=== PATIENT | female | born 1960 | race Caucasian/White ===

== ENCOUNTER 2017-01-07 09:36 | Observation (INO) | payer OTHER ==
[2017-01-07 09:47] VITALS: BMI 26.4
[2017-01-07 10:47] LABS: BASO # 0.02 K/mm3 (0.0-2.0); BASO % 0.7 % (0.0-3.0); GRAN # 1.33 (1.4-6.5); GRAN % 44.3 % (50.0-68.0); HEMATOCRIT 40.5 % (36.0-48.0); LYMPH # 1.3 (1.2-3.4); MEAN CELL VOLUME 91.4 fl (80.0-105.0); MEAN CORPUSCULAR HEMOGLOBIN 30.9 pg (25.0-35.0); MEAN CORPUSCULAR HGB CONC 33.8 g/dl (31.0-37.0); MEAN PLATELET VOLUME 11.3 fl (7.0-11.0); MONO # 0.3 (0.1-0.6); RED CELL DISTRIBUTION WIDTH 13.4 % (11.5-14.5)
[2017-01-07 10:56] LABS: BLOOD UREA NITROGEN 16 mg/dL (7-21); CALCIUM 9.9 mg/dL (8.4-10.5); CARBON DIOXIDE 29 mmol/L (21-33); CHLORIDE 100 mmol/L (98-107); GFR AFRICAN-AMERICAN > 60; GLUCOSE,RANDOM 72 mg/dL (70-110); POTASSIUM 3.6 mmol/L (3.6-5.0); SODIUM 142 mmol/L (132-148)
[2017-01-07 11:08] LABS: TROPONIN I < 0.01 ng/mL
[2017-01-07] MEDS: Sodium Chloride 0.9% 1,000 ML IV SCH ×2 (11:15→19:11)
[2017-01-07 11:22] LABS: ALB/GLOB RATIO 1.8 (1.1-1.8); ALKALINE PHOSPHATASE 32 U/L (38-126); ALT/SGPT 38 U/L (7-56); AST/SGOT 31 U/L (14-36); BILIRUBIN,TOTAL 0.8 mg/dL (0.2-1.3); TOTAL PROTEIN 7.1 g/dL (5.8-8.3)
--- NOTE | 2017-01-07 11:44 | ED PDOC ---
Arrival/HPI - General Chief Complaint: Dizziness/Lightheaded Time Seen by Provider: 01/07/17 09:52 - History of Present Illness Narrative History of Present Illness (Text): Patient is a 56 year old Upper Sorbian speaking female with extensive cardiac past medical history including stents s/p LA, CHF who presents to [facility] ED on 01/07/17 with complaints of dizziness, ear pressure, and headache. Patient states that the dizziness started three weeks ago, but the headache has been going on for six months. Patient was at the [facility] today when she suddenly began to feel dizzy. Patient was brought by EMS to [facility] due to her symptoms. Patient also states that as of late she needs to sleep with three pillows in order to not be short of breath. She states she is compliant with her medications, and has 3 days left before her precriptions run out. Patient denies hearing loss, tinnitus , recent URI, n/v/d, chest pain. 01/07/17 11:23 Past Medical History - Provider Review Nursing Documentation Reviewed: Yes - Infectious Disease Hx of Infectious Diseases: None - Cardiac Hx Cardiac Disorders: Yes (LA, CAD) Hx Congestive Heart Failure: Yes Hx LA: Yes (stents) Hx Pacemaker: Yes Other/Comment: ischemic cardio myopathy - Pulmonary Hx Respiratory Disorders: Yes Hx Pneumonia: Yes Other/Comment: exertional SOB - Neurological Hx Paralysis: No - HEENT Hx HEENT Disorder: No - Renal Hx Renal Disorder: No - Endocrine/Metabolic Hx Endocrine Disorders: Yes Hx Diabetes Mellitus Type 2: Yes - Hematological/Oncological Hx Blood Transfusions: No - Integumentary Hx Dermatological Disorder: No - Musculoskeletal/Rheumatological Hx Falls: No - Gastrointestinal Hx Gastroesophageal Reflux: Yes - Genitourinary/Gynecological Hx Genitourinary Disorders: Yes Hx Incontinence: Yes - Psychiatric Hx Psychophysiologic Disorder: Yes Hx Depression: Yes Hx Emotional Abuse: No Hx Physical Abuse: No Hx Substance Use: No - Surgical History Hx Coronary Stent: Yes - Anesthesia Hx Anesthesia: Yes Hx Anesthesia Reactions: No Hx Malignant Hyperthermia: No - Suicidal Assessment Feels Threatened In Home Enviroment: No Family/Social History - Physician Review Nursing Documentation Reviewed: Yes Family/Social History: CAD/LA Smoking Status: Never Smoked Hx Alcohol Use: No Hx Substance Use: No Hx Substance Use Treatment: No Allergies/Home Meds Allergies/Adverse Reactions: Allergies Penicillins Allergy (Verified 01/07/17 09:47) RASH Home Medications: Home Meds Medication Instructions Recorded Confirmed Atorvastatin Calcium [Lipitor] 80 mg PO DAILY 06/09/14 01/07/17 Carvedilol [Coreg] 6.25 mg PO BID 06/09/14 01/07/17 Clopidogrel [Plavix] 75 mg PO DAILY 06/09/14 01/07/17 Furosemide [Lasix] 20 mg PO DAILY 06/09/14 01/07/17 Spironolactone [Aldactone] 25 mg PO DAILY 06/09/14 01/07/17 Aspirin [Aspirin Chewable] 81 mg PO DAILY 01/07/17 01/07/17 Biotin [Biotin] 1 tab PO DAILY 01/07/17 01/07/17 Calcium Carbonate/Vitamin D3 1 tab PO BID 01/07/17 01/07/17 [Oysco 500-Vit D3 200 Tablet] Clobetasol 0.05% [Temovate 0.05% 1 appful TOP TID 01/07/17 01/07/17 OINTMENT] Digoxin [Digitek] 125 mcg PO DAILY 01/07/17 01/07/17 Docusate [Colace] 100 mg PO BID 01/07/17 01/07/17 Ergocalciferol (Vitamin D2) 1.25 mg PO .WEEKLY 01/07/17 01/07/17 [Vitamin D2] Fenofibrate [Triglide] 160 mg PO DAILY 01/07/17 01/07/17 Folic Acid [Folic Acid] 1,000 mg PO DAILY 01/07/17 01/07/17 Ibuprofen [Motrin Tab] 400 mg PO TID 01/07/17 01/07/17 Lipase/Protease/Amylase [Creon Dr 1 tab PO TID 01/07/17 01/07/17 24,000 Units Capsule] Meloxicam [Meloxicam] 15 mg PO DAILY 01/07/17 01/07/17 MetFORMIN [glucoPHAGE] 500 mg PO BID 01/07/17 01/07/17 Mirtazapine [Remeron] 15 mg PO DAILY 01/07/17 01/07/17 Mv,Min10/Folic Acid/D3/Ala/Lut 1 tab PO DAILY 01/07/17 01/07/17 [Strovite One Caplet] Omeprazole/Sodium Bicarbonate 1 tab PO DAILY 01/07/17 01/07/17 [Omeprazole-Bicarb 40-1,100 Cap] PARoxetine [Paxil] 10 mg PO DAILY 01/07/17 01/07/17 Sacubitril/Valsartan [Entresto 24 1 tab PO BID 01/07/17 01/07/17 mg-26 mg] Review of Systems - Physician Review All systems were reviewed & negative as marked: Yes - Review of Systems Systems not reviewed;Unavailable: Acuity of Condition Constitutional: absent: Fatigue, Fevers Eyes: absent: Vision Changes, Photophobia ENT: Other (increased pressure). absent: Normal, Hearing Changes, Tinnitus Respiratory: SOB. absent: Cough, Wheezing Cardiovascular: Other (pre-syncope). absent: Chest Pain, Palpitations Gastrointestinal: Normal. absent: Abdominal Pain Skin: Normal. absent: Rash, Pruritis Neurological: Headache, Dizziness. absent: Focal Weakness Psychiatric: Normal Physical Exam Vital Signs Reviewed: Yes Vital Signs Temp Pulse Resp BP Pulse Ox 01/07/17 09:37 97.7 F 71 18 101/61 99 Temperature: Afebrile Blood Pressure: Normal Pulse: Regular Respiratory Rate: Normal Appearance: Positive for: Well-Appearing Pain Distress: None Mental Status: Positive for: Alert and Oriented X 3 Finger Stick Blood Glucose: 132 - Systems Exam Head: Present: Atraumatic, Normocephalic Extroacular Muscles: Present: EOMI Ears: Present: Normal, NORMAL TM, Normal Canal. No: Erythema, TM Bulging, Fluid , TM Perf Mouth: Present: Moist Mucous Membranes Respiratory/Chest: Present: Clear to Auscultation, Good Air Exchange Cardiovascular: Present: Regular Rate and Rhythm, Normal S1, S2 Abdomen: Present: Normal Bowel Sounds. No: Tenderness, Distention, Rebound Neurological: Present: CN II-XII Intact, Speech Normal Skin: Present: Warm, Normal Color Psychiatric: Present: Alert, Oriented x 3 Medical Decision Making ED Course and Treatment: Assessment Patient is a 56 year old female who presents with vertigo, ear pressure and headache. Plan - EKG - CT head; no abnormalities - BNP: 466 - Will admit patient to hospitalist team due to extensive cardiac history of patient and presentation of dizziness, for further monitoring and evaluation 01/07/17 15:12 01/07/17 15:20 - Lab Interpretations Lab Results: 01/07/17 10:20 01/07/17 10:20 Lab Results 01/07/17 13:00: NT-Pro-B Natriuret Pep 466 H 01/07/17 10:20: Sodium 142, Potassium 3.6, Chloride 100, Carbon Dioxide 29, Anion Gap 17, BUN 16, Creatinine 0.6, Est GFR ( Amer) > 60, Est GFR (Non- Af Amer) > 60, Random Glucose 72, Calcium 9.9, Total Bilirubin 0.8, AST 31, ALT 38, Alkaline Phosphatase 32 L, Lactate Dehydrogenase 547, Total Creatine Kinase 39, Troponin I < 0.01, Total Protein 7.1, Albumin 4.6, Globulin 2.5, Albumin/ Globulin Ratio 1.8 01/07/17 10:20: WBC 3.0 L D, RBC 4.43, Hgb 13.7, Hct 40.5, MCV 91.4, MCH 30.9, MCHC 33.8, RDW 13.4, Plt Count 154, MPV 11.3 H, Gran % 44.3 L, Lymph % (Auto) 44.0 H, [place]k % (Auto) 10.0 H, Eos % (Auto) 1.0 L, Baso % (Auto) 0.7, Gran # 1.33 L, Lymph # 1.3, Polk # 0.3, Eos # 0.0, Baso # 0.02 I have reviewed the lab results: Yes Interpretation: Abnormal lab values (BNP 466) - RAD Interpretation Radiology Orders: 01/07/17 10:16 CHEST PORTABLE [RAD] Stat 01/07/17 11:22 HEAD W/O CONTRAST [CT] Stat Pick 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 Ulcer: No History Surgical Site Infection Following: None - Disposition Have Diagnosis and Disposition been Completed?: Yes Disposition: HOSPITALIZED Disposition Time: 15:21 Patient Plan: Admission Condition: GUARDED
--- NOTE | 2017-01-07 11:56 | CT ---
PROCEDURE: CT HEAD WITHOUT CONTRAST. HISTORY: headahce and dizziness COMPARISON: None available. TECHNIQUE: Axial computed tomography images were obtained through the head/brain without intravenous contrast. Radiation dose: Total exam DLP = 677.45 mGy-cm. This CT exam was performed using one or more of the following dose reduction techniques: Automated exposure control, adjustment of the mA and/or kV according to patient size, and/or use of iterative reconstruction technique. FINDINGS: HEMORRHAGE: No intracranial hemorrhage. BRAIN: No mass effect or edema. No atrophy or chronic microvascular ischemic changes. VENTRICLES: Unremarkable. No hydrocephalus. CALVARIUM: Unremarkable. PARANASAL SINUSES: Unremarkable as visualized. No significant inflammatory changes. MASTOID AIR CELLS: Unremarkable as visualized. No inflammatory changes. OTHER FINDINGS: None. IMPRESSION: Normal CT of the Head.
--- NOTE | 2017-01-07 12:21 | RAD ---
HISTORY: dizziness COMPARISON: 03/07/2016 FINDINGS: LUNGS: No active pulmonary disease. PLEURA: No significant pleural effusion identified, no pneumothorax apparent. CARDIOVASCULAR: Normal. OSSEOUS STRUCTURES: No significant abnormalities. VISUALIZED UPPER ABDOMEN: Normal. OTHER FINDINGS: Single lead pacemaker IMPRESSION: No active disease.
--- NOTE | 2017-01-07 15:54 | CP.PCM.HP ---
<Matt Fowler - Last Filed: 01/07/17 16:41> History of Present Illness - History of Present Illness History of Present Illness: This is a 56 yr. old female with a past medical history of multiple DC's, s/p stent of LAD AND LCX, Ischemic cardiomyopathy w/ EF 25%, s/p defibrillation, DM , HTN, and cardiac cath (May 2015) who presents with dizziness for approximately three weeks. She reports the dizziness as her head is spinning and hears a buzzing noise in her ears bilaterally that has been in conjunction with the dizziness for approximately 1 week. The patient reports taking meclizine in the morning and evening yesterday but couldn't determine if it helped since she was sleep all yesterday. The patient [facility] when she started to feel dizzy, off balance and that she was going to pass out. She was subsequently brought after one of the care takers at the home called for an ambulance. The patient also reports difficulty sleeping without three pillows. She reports having to sleep like this for multiple months. She reports that if she lays flat she begins to feel shortness of breath and like all of the blood in her body is rushing to her head. ROS: (+) lightheadedness, dizziness, shortness of breath (-) chest pain, changes in vision, urinary or bowel incontinence, nausea, vomiting, fevers, chills, change in appetite, or any other complaints. PMHx: Per HPI PSHx: Cardiac cath (May 2015) SHx:Denies etoh, tobacco, or illicit drug use. Patient lives at home with son and daughter PMD:Dr. Corbin Cardiology: Dr. Dye Present on Admission - Present on Admission Any Indicators Present on Admission: No Review of Systems - Constitutional Constitutional: Headache. absent: Chills, Weight Gain, Weight Loss - EENT Eyes: absent: Discharge, Dry Eye, Loss of Vision Nose/Mouth/Throat: As Per HPI - Cardiovascular Cardiovascular: As Per HPI - Respiratory Respiratory: As Per HPI - Gastrointestinal Gastrointestinal: As Per HPI - Genitourinary Genitourinary: As Per HPI - Musculoskeletal Musculoskeletal: As Per HPI - Neurological Neurological: As Per HPI - Endocrine Endocrine: As Per HPI Past Patient History - Infectious Disease Hx of Infectious Diseases: None - Past Social History Smoking Status: Never Smoked - CARDIAC Hx Cardiac Disorders: Yes (DC, CAD) Hx Congestive Heart Failure: Yes Hx Heart Attack: Yes (stents) Hx Pacemaker: Yes Other/Comment: ischemic cardio myopathy - PULMONARY Hx Respiratory Disorders: Yes Hx Pneumonia: Yes Other/Comment: exertional SOB - NEUROLOGICAL Hx Paralysis: No - HEENT Hx HEENT Problems: No - RENAL Hx Chronic Kidney Disease: No - ENDOCRINE/METABOLIC Hx Endocrine Disorders: Yes Hx Diabetes Mellitus Type 2: Yes - HEMATOLOGICAL/ONCOLOGICAL Hx Blood Transfusions: No - INTEGUMENTARY Hx Dermatological Problems: No - MUSCULOSKELETAL/RHEUMATOLOGICAL Hx Falls: No - GASTROINTESTINAL Hx Gastroesophageal Reflux: Yes - GENITOURINARY/GYNECOLOGICAL Hx Genitourinary Disorders: Yes Hx Incontinence: Yes - PSYCHIATRIC Hx Psychophysiologic Disorder: Yes Hx Depression: Yes Hx Emotional Abuse: No Hx Physical Abuse: No Hx Substance Use: No - SURGICAL HISTORY Hx Coronary Stent: Yes - ANESTHESIA Hx Anesthesia: Yes Hx Anesthesia Reactions: No Hx Malignant Hyperthermia: No Meds Allergies/Adverse Reactions: Allergies Allergy/AdvReac Type Severity Reaction Status Date / Time Penicillins Allergy RASH Verified 01/07/17 09:47 Physical Exam - Constitutional Appears: Younger Than Stated Age - Head Exam Head Exam: ATRAUMATIC, NORMAL INSPECTION, NORMOCEPHALIC - Eye Exam Eye Exam: EOMI, Normal appearance, PERRL Pupil Exam: NORMAL ACCOMODATION, PERRL - ENT Exam ENT Exam: Mucous Membranes Moist - Neck Exam Neck exam: Positive for: Normal Inspection - Respiratory Exam Respiratory Exam: Clear to Auscultation Bilateral, NORMAL BREATHING PATTERN. absent: Rales, Rhonchi - Cardiovascular Exam Cardiovascular Exam: REGULAR RHYTHM, RRR, +S1, +S2. absent: Rubs - GI/Abdominal Exam GI & Abdominal Exam: Normal Bowel Sounds, Soft. absent: Firm, Guarding - Extremities Exam Extremities exam: Positive for: normal inspection. Negative for: tenderness - Back Exam Back exam: NORMAL INSPECTION. absent: paraspinal tenderness - Neurological Exam Neurological exam: Alert, CN II-XII Intact, Normal Gait, Oriented x3 - Psychiatric Exam Psychiatric exam: Normal Affect, Normal Mood - Skin Skin Exam: Dry, Intact, Normal Color Results - Vital Signs Recent Vital Signs: Last Vital Signs Temp 97.7 F 01/07/17 09:37 Pulse 71 01/07/17 09:37 Resp 18 01/07/17 09:37 BP 101/61 01/07/17 09:37 Pulse Ox 99 01/07/17 09:37 - Labs Result Diagrams: 01/07/17 10:20 01/07/17 10:20 - EKG Data EKG Interpreted by: ER Physician Assessment & Plan - Assessment and Plan (Free Text) Assessment: Dizziness vs. pre-syncope vs. TIA -EKG done in E.D. showed some old ST changes in leads V1,V2,V3. It was compared to her last EKG done in the E.D. in March of 2016. No acute findings noted. -Troponins (-) x1 -Patient currently stable: HR 71, BP 95/54, 18RR, and 99 R.A. -Karolyn maneuver done in E.D. with no resolution of symptoms. 1L NS fluids given in E.D. -Head Ct was negative. Carotid Doppler ordered. -Consider MRI if dizziness persists. -Cardio consult pending. Tinnitus vs. Meiner's disease -"buzzing sound" occurring for the last week in conjunction with the dizziness. TM's were grossly benign on physical exam in conjunction with the patient being Afebrile with no signs of leukocytosis. -ENT consult ordered. Hypotensive vs. r/o Orthostatic Hypotension -Patient blood pressure currently 95/54. Patient reports feeling lightheaded upon standing. Continue to monitor VS. -Order orthostatics to be checked tomorrow morning. Polypharmacy -Patient takes over 20 medications daily with alot of them affecting heart function. -F/u with patient tomorrow to determine the how many pills are taken at one time and her compliance level with the pills. -Consider changing medication regimen if dizzy symptom persist. <Anitra Walters - Last Filed: 01/08/17 14:03> Results - Vital Signs Recent Vital Signs: Last Vital Signs Temp 97.8 F 01/08/17 11:53 Pulse 50 L 01/08/17 11:53 Resp 18 01/08/17 11:53 BP 95/49 L 01/08/17 11:53 Pulse Ox 98 01/08/17 06:00 - Labs Result Diagrams: 01/08/17 08:50 01/08/17 08:50 Labs: Laboratory Results - last 24 hr 01/07/17 01/08/17 01/08/17 21:34 07:15 08:50 WBC 2.9 L* RBC 4.04 Hgb 12.5 Hct 37.4 MCV 92.6 MCH 30.9 MCHC 33.4 RDW 13.5 Plt Count 133 MPV 10.5 Gran % 38.0 L Lymph % (Auto) 53.8 H [place]ell % (Auto) 6.5 H Eos % (Auto) 1.4 L Baso % (Auto) 0.3 Gran # 1.11 L Lymph # 1.6 [place]ell # 0.2 Eos # 0.0 Baso # 0.01 Sodium Potassium Chloride Carbon Dioxide Anion Gap BUN Creatinine Est GFR ( Amer) Est GFR (Non-Af Amer) POC Glucose (mg/dL) 88 92 Random Glucose Calcium Total Bilirubin AST ALT Alkaline Phosphatase Total Protein Albumin Globulin Albumin/Globulin Ratio 01/08/17 01/08/17 08:50 11:16 WBC RBC Hgb Hct MCV MCH MCHC RDW Plt Count MPV Gran % Lymph % (Auto) [place] % (Auto) Eos % (Auto) Baso % (Auto) Gran # Lymph # Coryell # Eos # Baso # Sodium 143 Potassium 4.2 Chloride 106 Carbon Dioxide 27 Anion Gap 14 BUN 12 Creatinine 0.6 Est GFR ( Amer) > 60 Est GFR (Non-Af Amer) > 60 POC Glucose (mg/dL) 145 H Random Glucose 81 Calcium 8.9 Total Bilirubin 0.5 AST 36 ALT 37 Alkaline Phosphatase 30 L Total Protein 6.3 Albumin 4.0 Globulin 2.3 Albumin/Globulin Ratio 1.7 Attending/Attestation - Attestation I have personally seen and examined this patient.: Yes I have fully participated in the care of the patient.: Yes I have reviewed all pertinent clinical information: Yes Notes (Text): 01/08/17 13:59 attending note; Patient seen and examined with the resident. Patient is a 56 yr. old female with a past medical history of multiple DC's, s/ p stent of LAD AND LCX, Ischemic cardiomyopathy w/ EF 25%, s/p defibrillator , DM, HTN, and cardiac cath (May 2015) who presents with dizziness. Monitor blood pressure closely. Patient has severe cardiomyopathy. Cardiology evaluation appreciated. Dizziness; possibly related to benign positional vertigo. PT evaluation requested. Neurology evalution requested. Upon discharge the patient will follow-up with PMD . 01/08/17 14:02
[2017-01-07] MEDS: Digoxin 125 mcg (0.125 mg) Tab PO SCH (16:52)
[2017-01-07] MEDS: Cholecalciferol 400 Intl Units Tab PO SCH (18:40)
[2017-01-07] MEDS: SACUBITRIL PO SCH (18:44)
[2017-01-07] MEDS: VALSARTAN PO SCH (18:44)
[2017-01-07] MEDS: Amylase/Lipase/Protease 5,000 U ECC PO SCH (19:00)
[2017-01-07] MEDS: BIOTIN PO SCH (19:44)
[2017-01-07] MEDS ORDERED: Pneumococcal 23-Valent Vaccine IM ONE (20:46)
--- NOTE | 2017-01-07 23:26 | CARD ---
APPROVED REPORT EKG Measurement Heart [id number] <Conclusion> Normal sinus rhythm Anterior infarct, age undetermined Abnormal ECG
[2017-01-08] MEDS: Sodium Chloride 0.9% 1,000 ML IV SCH ×2 (04:32→10:07)
[2017-01-08 07:00] VITALS: O2SAT 98
[2017-01-08 09:04] LABS: BASO # 0.01 K/mm3 (0.0-2.0); BASO % 0.3 % (0.0-3.0); EOS % 1.4 % (1.5-5.0); GRAN # 1.11 (1.4-6.5); HEMATOCRIT 37.4 % (36.0-48.0); LYMPH # 1.6 (1.2-3.4); LYMPH % 53.8 % (22.0-35.0); MEAN CELL VOLUME 92.6 fl (80.0-105.0); MEAN CORPUSCULAR HEMOGLOBIN 30.9 pg (25.0-35.0); MEAN CORPUSCULAR HGB CONC 33.4 g/dl (31.0-37.0); MEAN PLATELET VOLUME 10.5 fl (7.0-11.0); MONO # 0.2 (0.1-0.6); MONO % 6.5 % (1.0-6.0); RED CELL DISTRIBUTION WIDTH 13.5 % (11.5-14.5)
[2017-01-08 09:44] LABS: ALB/GLOB RATIO 1.7 (1.1-1.8); ALKALINE PHOSPHATASE 30 U/L (38-126); ALT/SGPT 37 U/L (7-56); AST/SGOT 36 U/L (14-36); BILIRUBIN,TOTAL 0.5 mg/dL (0.2-1.3); BLOOD UREA NITROGEN 12 mg/dL (7-21); CALCIUM 8.9 mg/dL (8.4-10.5); CARBON DIOXIDE 27 mmol/L (21-33); CHLORIDE 106 mmol/L (98-107); GFR AFRICAN-AMERICAN > 60; GLUCOSE,RANDOM 81 mg/dL (70-110); POTASSIUM 4.2 mmol/L (3.6-5.0); SODIUM 143 mmol/L (132-148); TOTAL PROTEIN 6.3 g/dL (5.8-8.3)
[2017-01-08 09:52] LABS: WHITE BLOOD COUNT 2.9 10^3/ul (4.5-11.0)
[2017-01-08] MEDS ORDERED: Multivitamin With Minerals Tab PO SCH (10:00)
[2017-01-08] MEDS: Cholecalciferol 400 Intl Units Tab PO SCH (10:35)
[2017-01-08] MEDS: Amylase/Lipase/Protease 5,000 U ECC PO SCH ×2 (10:40→15:29)
[2017-01-08] MEDS: VALSARTAN PO SCH (10:42)
[2017-01-08] MEDS: SACUBITRIL PO SCH (10:42)
[2017-01-08] MEDS: BIOTIN PO SCH (10:43)
[2017-01-08 11:53] VITALS: BP 95/49; PULSE 50; RESP 18; TEMP 97.8
--- NOTE | 2017-01-08 14:46 | CP.PCM.DIS ---
<JanethEunice - Last Filed: 01/08/17 14:50> Provider - Provider Date of Admission: 01/07/17 13:36 Attending physician: Soheila Hernandez MD Primary care physician: NO PRIMARY CARE PROVIDER Time Spent in preparation of Discharge (in minutes): 45 Hospital Course - Lab Results Lab Results: Most Recent Lab Values WBC 2.9 10^3/ul (4.5-11.0) L* 01/08/17 08:50 RBC 4.04 10^6/uL (3.5-6.1) 01/08/17 08:50 Hgb 12.5 g/dL (12.0-16.0) 01/08/17 08:50 Hct 37.4 % (36.0-48.0) 01/08/17 08:50 MCV 92.6 fl (80.0-105.0) 01/08/17 08:50 MCH 30.9 pg (25.0-35.0) 01/08/17 08:50 MCHC 33.4 g/dl (31.0-37.0) 01/08/17 08:50 RDW 13.5 % (11.5-14.5) 01/08/17 08:50 Plt Count 133 10^3/uL (120.0-450.0) 01/08/17 08:50 MPV 10.5 fl (7.0-11.0) 01/08/17 08:50 Gran % 38.0 % (50.0-68.0) L 01/08/17 08:50 Lymph % (Auto) 53.8 % (22.0-35.0) H 01/08/17 08:50 [place] % (Auto) 6.5 % (1.0-6.0) H 01/08/17 08:50 Eos % (Auto) 1.4 % (1.5-5.0) L 01/08/17 08:50 Baso % (Auto) 0.3 % (0.0-3.0) 01/08/17 08:50 Gran # 1.11 (1.4-6.5) L 01/08/17 08:50 Lymph # 1.6 (1.2-3.4) 01/08/17 08:50 [place] # 0.2 (0.1-0.6) 01/08/17 08:50 Eos # 0.0 (0.0-0.7) 01/08/17 08:50 Baso # 0.01 K/mm3 (0.0-2.0) 01/08/17 08:50 Sodium 143 mmol/L (132-148) 01/08/17 08:50 Potassium 4.2 mmol/L (3.6-5.0) 01/08/17 08:50 Chloride 106 mmol/L (98-107) 01/08/17 08:50 Carbon Dioxide 27 mmol/L (21-33) 01/08/17 08:50 Anion Gap 14 (10-20) 01/08/17 08:50 BUN 12 mg/dL (7-21) 01/08/17 08:50 Creatinine 0.6 mg/dL (0.5-1.4) 01/08/17 08:50 Est GFR ( Amer) > 60 01/08/17 08:50 Est GFR (Non-Af Amer) > 60 01/08/17 08:50 POC Glucose (mg/dL) 145 mg/dL (65-110) H 01/08/17 11:16 Random Glucose 81 mg/dL (70-110) 01/08/17 08:50 Calcium 8.9 mg/dL (8.4-10.5) 01/08/17 08:50 Total Bilirubin 0.5 mg/dL (0.2-1.3) 01/08/17 08:50 AST 36 U/L (14-36) 01/08/17 08:50 ALT 37 U/L (7-56) 01/08/17 08:50 Alkaline Phosphatase 30 U/L (38-126) L 01/08/17 08:50 Lactate Dehydrogenase 547 U/L (333-699) 01/07/17 10:20 Total Creatine Kinase 39 U/L (35-230) 01/07/17 10:20 Troponin I < 0.01 ng/mL 01/07/17 10:20 NT-Pro-B Natriuret Pep 466 pg/mL (0-450) H 01/07/17 13:00 Total Protein 6.3 g/dL (5.8-8.3) 01/08/17 08:50 Albumin 4.0 g/dL (3.0-4.8) 01/08/17 08:50 Globulin 2.3 gm/dL 01/08/17 08:50 Albumin/Globulin Ratio 1.7 (1.1-1.8) 01/08/17 08:50 - Hospital Course Hospital Course: This is a 56 yr. old female with a past medical history of CAD, multiple VA's, stent placement in the LAD and LCX, ischemic cardiomyopathy with an EF=25%, AICD , DM, HTN and cardiac cath (2016) that presented with dizziness for three weeks that she described as head spinning associated with buzzing noise in bilateral ears for one week. Patient reports taking Meclizine in the morning and afternoon without any relief which caused her to sleep the whole day before coming in today. The next day she was in the [employer] when she started to feel dizzy off balance, as if she was going to pass out. She was subsequently brought in via ambulance. Patient also reports SOB and feeling of "blood rushing to heard" when laying flat. She also reports needing 3 pillows to sleep. On 01/[address] done which was negative and her HLO=587. Cardio and ENT were consulted during her stay. Patient was discharged on 01/08. - Date & Time of H&P Date of H&P: 01/07/17 Time of H&P: 15:14 Discharge Exam - Head Exam Head Exam: ATRAUMATIC, NORMAL INSPECTION, NORMOCEPHALIC - Eye Exam Eye Exam: EOMI, Normal appearance, PERRL Pupil Exam: NORMAL ACCOMODATION, PERRL - Respiratory Exam Respiratory Exam: Clear to PA & Lateral, NORMAL BREATHING PATTERN, UNREMARKABLE. absent: Rales, Rhonchi, Stridor - Cardiovascular Exam Cardiovascular Exam: REGULAR RHYTHM, RRR, +S1, +S2. absent: Gallop, Rubs - GI/Abdominal Exam GI & Abdominal Exam: Normal Bowel Sounds, Unremarkable - Back Exam Back exam: NORMAL INSPECTION. absent: paraspinal tenderness - Neurological Exam Neurological exam: Alert, CN II-XII Intact, Oriented x3 - Psychiatric Exam Psychiatric exam: Normal Affect, Normal Mood - Skin Skin Exam: Dry Discharge Plan - Discharge Medications Prescriptions: Carvedilol [Coreg] 3.125 mg PO BID #60 tab Meclizine [Antivert] 12.5 mg PO TID PRN #6 tab PRN Reason: Dizziness - Follow Up Plan Condition: GUARDED Disposition: HOME/ ROUTINE Instructions: Pacemaker (GEN), Syncope (GEN), Hypotension (GEN), Dizziness (GEN ) Additional Instructions: 1. Follow up with DR. dye in 2 days and adjust dosage. 2. Follow up with PMD DR. Corbin. 3. Decrease coreg from 6.25 to 3.125 bid. 4. Outpatient vestibular therapy. 5. Heart healthy diet Continue home medications as ordered. If condition occurs again go to the nearest emergency room. Referrals: PCP,NO [Primary Care Provider] - <Anitra Waletrs - Last Filed: 01/08/17 17:43> Provider - Provider Date of Admission: 01/07/17 13:36 Attending physician: Soheila Hernandez MD Primary care physician: NO PRIMARY CARE PROVIDER Hospital Course - Lab Results Lab Results: Most Recent Lab Values WBC 2.9 10^3/ul (4.5-11.0) L* 01/08/17 08:50 RBC 4.04 10^6/uL (3.5-6.1) 01/08/17 08:50 Hgb 12.5 g/dL (12.0-16.0) 01/08/17 08:50 Hct 37.4 % (36.0-48.0) 01/08/17 08:50 MCV 92.6 fl (80.0-105.0) 01/08/17 08:50 MCH 30.9 pg (25.0-35.0) 01/08/17 08:50 MCHC 33.4 g/dl (31.0-37.0) 01/08/17 08:50 RDW 13.5 % (11.5-14.5) 01/08/17 08:50 Plt Count 133 10^3/uL (120.0-450.0) 01/08/17 08:50 MPV 10.5 fl (7.0-11.0) 01/08/17 08:50 Gran % 38.0 % (50.0-68.0) L 01/08/17 08:50 Lymph % (Auto) 53.8 % (22.0-35.0) H 01/08/17 08:50 [place] % (Auto) 6.5 % (1.0-6.0) H 01/08/17 08:50 Eos % (Auto) 1.4 % (1.5-5.0) L 01/08/17 08:50 Baso % (Auto) 0.3 % (0.0-3.0) 01/08/17 08:50 Gran # 1.11 (1.4-6.5) L 01/08/17 08:50 Lymph # 1.6 (1.2-3.4) 01/08/17 08:50 [place] # 0.2 (0.1-0.6) 01/08/17 08:50 Eos # 0.0 (0.0-0.7) 01/08/17 08:50 Baso # 0.01 K/mm3 (0.0-2.0) 01/08/17 08:50 Sodium 143 mmol/L (132-148) 01/08/17 08:50 Potassium 4.2 mmol/L (3.6-5.0) 01/08/17 08:50 Chloride 106 mmol/L (98-107) 01/08/17 08:50 Carbon Dioxide 27 mmol/L (21-33) 01/08/17 08:50 Anion Gap 14 (10-20) 01/08/17 08:50 BUN 12 mg/dL (7-21) 01/08/17 08:50 Creatinine 0.6 mg/dL (0.5-1.4) 01/08/17 08:50 Est GFR ( Amer) > 60 01/08/17 08:50 Est GFR (Non-Af Amer) > 60 01/08/17 08:50 POC Glucose (mg/dL) 145 mg/dL (65-110) H 01/08/17 11:16 Random Glucose 81 mg/dL (70-110) 01/08/17 08:50 Calcium 8.9 mg/dL (8.4-10.5) 01/08/17 08:50 Total Bilirubin 0.5 mg/dL (0.2-1.3) 01/08/17 08:50 AST 36 U/L (14-36) 01/08/17 08:50 ALT 37 U/L (7-56) 01/08/17 08:50 Alkaline Phosphatase 30 U/L (38-126) L 01/08/17 08:50 Lactate Dehydrogenase 547 U/L (333-699) 01/07/17 10:20 Total Creatine Kinase 39 U/L (35-230) 01/07/17 10:20 Troponin I < 0.01 ng/mL 01/07/17 10:20 NT-Pro-B Natriuret Pep 466 pg/mL (0-450) H 01/07/17 13:00 Total Protein 6.3 g/dL (5.8-8.3) 01/08/17 08:50 Albumin 4.0 g/dL (3.0-4.8) 01/08/17 08:50 Globulin 2.3 gm/dL 01/08/17 08:50 Albumin/Globulin Ratio 1.7 (1.1-1.8) 01/08/17 08:50 Attending/Attestation - Attestation I have personally seen and examined this patient.: Yes I have fully participated in the care of the patient.: Yes I have reviewed all pertinent clinical information, including history, physical exam and plan: Yes Notes (Text): 01/08/17 17:41 attending note; Patient seen and examined with the resident. Patient is a 56 yr. old female with a past medical history of multiple VA's, s/ p stent of LAD AND LCX, Ischemic cardiomyopathy w/ EF 25%, s/p defibrillator , DM, HTN, and cardiac cath (May 2015) who presents with dizziness. low blood pressure: secondary cardiomyopathy. Medication adjusted by cooker casing Dr. Dye. Coreg dosage decreased to 3.125 twice a day from 6.25 twice a day. Dizziness; possibly related to benign positional vertigo. PT evaluation appreciated. Neurology evaluation appreciated. Continue meclizine when necessary. AICD interrogation done which was normal. Upon discharge the patient will follow-up with PMD . diagnosis; Dizziness Cardiomyopathy AICD placemen Benign positional vertigo/vestibular neuronitis
[2017-01-08] MEDS: Digoxin 125 mcg (0.125 mg) Tab PO SCH (15:29)
[2017-01-08 15:30] VITALS: PULSE 61
--- NOTE | 2017-01-08 16:14 | CP.PCM.CON ---
<GómezRishabh - Last Filed: 01/08/17 16:07> History of Present Illness - History of Present Illness History of Present Illness: Neurology Consult Note for Dr. Murphy service Consulted for: headache, possible BPPV HPI: This is a 56 yo Spanish F with PMH of multiple VA's, CAD s/p stenting of LAD AND LCX, Ischemic cardiomyopathy w/ EF 25%, s/p defibrillator placement, DM , HTN, and recent cardiac cath (May 2015) who presented [place] [facility] dizziness x3 wks, and fullness/buzzing in bilateral ears concurrent with dizziness for the last week. Describes the dizziness as room spinning, general lightheadedness. Also reported to ED and Primary team that she attempted to control with Meclizine, but stopped taking after getting no relief after 2 doses. Patient also reports shortness of breath when lying flat, normally sleeping on 3 pillows. Patient denies chest pain, shortness of breath when upright, vision changes, loss of balance/fall with head trauma, fevers/chills, emesis, diarrhea, or focal weakness. All other ROS in 12-point system review negative PMH: as above PSH: Cardiac cath (May 2015) SHx: Denies tobacco/alcohol/illicits Lives at home with son and daughter FHx: CAD and VA in multiple 1st degree and extended family relatives PMD:Dr. Corbin Cardiology: Dr. Dye Review of Systems - Review of Systems All systems: reviewed and no additional remarkable complaints except (as per HPI ) Past Patient History - Infectious Disease Hx of Infectious Diseases: None - Past Social History Smoking Status: Never Smoked - CARDIAC Hx Cardiac Disorders: Yes (VA, CAD) Hx Congestive Heart Failure: Yes Hx Hypercholesterolemia: Yes Hx Hypertension: Yes - PULMONARY Hx Respiratory Disorders: Yes Hx Pneumonia: Yes Other/Comment: exertional SOB, sleeps on 3 pillows - NEUROLOGICAL Hx Neurological Disorder: No - HEENT Hx HEENT Problems: No - RENAL Hx Chronic Kidney Disease: No - ENDOCRINE/METABOLIC Hx Diabetes Mellitus Type 2: Yes - HEMATOLOGICAL/ONCOLOGICAL Hx Blood Disorders: No - INTEGUMENTARY Hx Dermatological Problems: No - MUSCULOSKELETAL/RHEUMATOLOGICAL Hx Falls: No Hx Unsteady Gait: Yes (cane) - GASTROINTESTINAL Hx Gastroesophageal Reflux: Yes - GENITOURINARY/GYNECOLOGICAL Hx Genitourinary Disorders: Yes Hx Incontinence: Yes - PSYCHIATRIC Hx Psychophysiologic Disorder: Yes Hx Depression: Yes Hx Emotional Abuse: No Hx Physical Abuse: No Hx Substance Use: No - SURGICAL HISTORY Hx Surgeries: Yes Hx Coronary Stent: Yes - ANESTHESIA Hx Anesthesia: Yes Hx Anesthesia Reactions: No Hx Malignant Hyperthermia: No Meds Home Medications: Home Medication List Medication Instructions Recorded Confirmed Type Carvedilol [Coreg] 3.125 mg PO BID #60 tab 01/08/17 Rx Meclizine [Antivert] 12.5 mg PO TID PRN #6 tab 01/08/17 Rx Allergies/Adverse Reactions: Allergies Allergy/AdvReac Type Severity Reaction Status Date / Time Penicillins Allergy RASH Verified 01/07/17 09:47 - Medications Medications: Current Medications Amylase (Pancrease 58455 U-5000 U-17498 U) 5,000 u PO TID [facility] Last Admin: 01/08/17 15:29 Dose: 5,000 u Aspirin (Aspirin Chewable) 81 mg PO DAILY [facility] Last Admin: 01/08/17 10:36 Dose: 81 mg Atorvastatin Calcium (Lipitor) 80 mg PO DAILY [facility] Last Admin: 01/08/17 10:34 Dose: 80 mg Calcium Carbonate (Oscal) 500 mg PO BID [facility] Last Admin: 01/08/17 10:34 Dose: 500 mg Carvedilol (Coreg) 3.125 mg PO BID [facility] Last Admin: 01/08/17 10:42 Dose: Not Given Clopidogrel Bisulfate (Plavix) 75 mg PO DAILY [facility] Last Admin: 01/08/17 10:34 Dose: 75 mg Digoxin (Lanoxin) 0.125 mg PO 1400 [facility] Last Admin: 01/08/17 15:29 Dose: 0.125 mg Docusate Sodium (Colace) 100 mg PO BID [facility] Last Admin: 01/08/17 10:34 Dose: 100 mg Fenofibrate (Tricor) 145 mg PO DAILY [facility] Last Admin: 01/08/17 10:34 Dose: 145 mg Folic Acid (Folic Acid) 1 mg PO DAILY [facility] Last Admin: 01/08/17 10:36 Dose: 1 mg Furosemide (Lasix) 20 mg PO DAILY [facility] Last Admin: 01/08/17 10:34 Dose: 20 mg Metformin HCl (Glucophage) 500 mg PO BID [facility] Last Admin: 01/08/17 10:36 Dose: 500 mg Mirtazapine (Remeron) 15 mg PO DAILY [facility] Last Admin: 01/08/17 10:35 Dose: 15 mg Multivitamins/Minerals (Therapeutic-M Tab) 1 tab PO DAILY [facility] Last Admin: 01/08/17 10:35 Dose: 1 tab Non-Formulary Medication (Biotin [Biotin]) 1 tab PO DAILY [facility] Last Admin: 01/08/17 10:43 Dose: Not Given Non-Formulary Medication (Sacubitril/Valsartan [Entresto 24 Mg-26 Mg]) 1 tab PO BID [facility] Last Admin: 01/08/17 10:42 Dose: Not Given Paroxetine HCl (Paxil) 10 mg PO DAILY [facility] Last Admin: 01/08/17 11:00 Dose: 10 mg Spironolactone (Aldactone) 25 mg PO DAILY [facility] Last Admin: 01/08/17 10:59 Dose: 25 mg Vitamin D (Vitamin D 400 Intl Units Tab) 200 intlu PO BID [facility] Last Admin: 01/08/17 10:35 Dose: 200 intlu Physical Exam - Constitutional Appears: Well, Non-toxic, No Acute Distress, Other (Anxous) - Head Exam Head Exam: ATRAUMATIC, NORMAL INSPECTION, NORMOCEPHALIC - Eye Exam Eye Exam: EOMI, Normal appearance, PERRL. absent: Conjunctival injection, Nystagmus, Scleral icterus Pupil Exam: NORMAL ACCOMODATION, PERRL. absent: Fixed, Irregular, Unequal - ENT Exam ENT Exam: Mucous Membranes Moist. absent: Mucous Membranes Dry - Neck Exam Neck exam: Positive for: Full Rom, Normal Inspection - Respiratory Exam Respiratory Exam: Clear to Auscultation Bilateral, NORMAL BREATHING PATTERN. absent: Accessory Muscle Use, Chest Wall Tenderness, Decreased Breath Sounds, Rales, Rhonchi, Wheezes - Cardiovascular Exam Cardiovascular Exam: REGULAR RHYTHM, RRR, +S1, +S2. absent: Bradycardia, Tachycardia, Clicks, JVD, +S4 - GI/Abdominal Exam GI & Abdominal Exam: Normal Bowel Sounds, Soft. absent: Diminished Bowel Sounds , Distended, Firm, Hyperactive Bowel Sounds, Hypoactive Bowel Sounds, Rigid, Tenderness - Extremities Exam Extremities exam: Negative for: calf tenderness, pedal edema, tenderness - Neurological Exam Neurological exam: Alert, CN II-XII Intact, Oriented x3 Additional comments: awake and alert, following all commands appropriately, moving all extremities spontaneously no ataxia, no intention or resting tremors - Psychiatric Exam Psychiatric exam: Anxious, Normal Affect - Skin Skin Exam: Dry, Intact, Normal Color, Warm Results - Vital Signs Recent Vital Signs: Last Vital Signs Temp 97.8 F 01/08/17 11:53 Pulse 50 L 01/08/17 11:53 Resp 18 01/08/17 11:53 BP 95/49 L 01/08/17 11:53 Pulse Ox 98 01/08/17 06:00 - Labs Result Diagrams: 01/08/17 08:50 01/08/17 08:50 Labs: Laboratory Results - last 24 hr 01/07/17 01/08/17 01/08/17 21:34 07:15 08:50 WBC 2.9 L* RBC 4.04 Hgb 12.5 Hct 37.4 MCV 92.6 MCH 30.9 MCHC 33.4 RDW 13.5 Plt Count 133 MPV 10.5 Gran % 38.0 L Lymph % (Auto) 53.8 H [place] % (Auto) 6.5 H Eos % (Auto) 1.4 L Baso % (Auto) 0.3 Gran # 1.11 L Lymph # 1.6 [place] # 0.2 Eos # 0.0 Baso # 0.01 Sodium Potassium Chloride Carbon Dioxide Anion Gap BUN Creatinine Est GFR ( Amer) Est GFR (Non-Af Amer) POC Glucose (mg/dL) 88 92 Random Glucose Calcium Total Bilirubin AST ALT Alkaline Phosphatase Total Protein Albumin Globulin Albumin/Globulin Ratio 01/08/17 01/08/17 08:50 11:16 WBC RBC Hgb Hct MCV MCH MCHC RDW Plt Count MPV Gran % Lymph % (Auto) [place] % (Auto) Eos % (Auto) Baso % (Auto) Gran # Lymph # [place] # Eos # Baso # Sodium 143 Potassium 4.2 Chloride 106 Carbon Dioxide 27 Anion Gap 14 BUN 12 Creatinine 0.6 Est GFR ( Amer) > 60 Est GFR (Non-Af Amer) > 60 POC Glucose (mg/dL) 145 H Random Glucose 81 Calcium 8.9 Total Bilirubin 0.5 AST 36 ALT 37 Alkaline Phosphatase 30 L Total Protein 6.3 Albumin 4.0 Globulin 2.3 Albumin/Globulin Ratio 1.7 Assessment & Plan - Assessment and Plan (Free Text) Assessment: This is a 56 yo Spanish F with PMH of multiple VA's, CAD s/p stenting of LAD AND LCX, Ischemic cardiomyopathy w/ EF 25%, s/p defibrillator placement, DM, HTN, and recent cardiac cath (May 2015) who presented to [facility] with dizziness x3 wks, and fullness/buzzing in bilateral ears concurrent with dizziness for the last week. Her dizziness is likely 2/2 positional vertigo with possible underlying vestibular neuritis. There is also likely a component of cerebral hypoperfusion to the brain secondary to her hx of ischemic cardiomyopathy with low EF, causing low systolic and diastolic blood pressures. Plan: 1) Meclizine 25mg PO TID for at least one month. Patient instructed to NOT stop taking after only a few doses 2) Fioricet 1 tab PO q4 PRN for headache 3) Reduced dietary sodium 4) Vestibular rehab, PT/OT 5) Would normally recommend lying flat, but not feasible for this patient due to significant SOB when lying flat Patient seen, reviewed, and discussed with attending, Dr. Benjamin Murphy. <Scott Murphy - Last Filed: 01/08/17 16:33> Meds - Medications Medications: Current Medications Acetaminophen/Butalbital/Caffeine (Fioricet) 1 tab PO Q4H PRN PRN Reason: Headache Amylase (Pancrease 47776 U-5000 U-09004 U) 5,000 u PO TID [facility] Last Admin: 01/08/17 15:29 Dose: 5,000 u Aspirin (Aspirin Chewable) 81 mg PO DAILY [facility] Last Admin: 01/08/17 10:36 Dose: 81 mg Atorvastatin Calcium (Lipitor) 80 mg PO DAILY [facility] Last Admin: 01/08/17 10:34 Dose: 80 mg Calcium Carbonate (Oscal) 500 mg PO BID [facility] Last Admin: 01/08/17 10:34 Dose: 500 mg Carvedilol (Coreg) 3.125 mg PO BID [facility] Last Admin: 01/08/17 10:42 Dose: Not Given Clopidogrel Bisulfate (Plavix) 75 mg PO DAILY [facility] Last Admin: 01/08/17 10:34 Dose: 75 mg Digoxin (Lanoxin) 0.125 mg PO 1400 [facility] Last Admin: 01/08/17 15:29 Dose: 0.125 mg Docusate Sodium (Colace) 100 mg PO BID [facility] Last Admin: 01/08/17 10:34 Dose: 100 mg Fenofibrate (Tricor) 145 mg PO DAILY [facility] Last Admin: 01/08/17 10:34 Dose: 145 mg Folic Acid (Folic Acid) 1 mg PO DAILY [facility] Last Admin: 01/08/17 10:36 Dose: 1 mg Furosemide (Lasix) 20 mg PO DAILY [facility] Last Admin: 01/08/17 10:34 Dose: 20 mg Metformin HCl (Glucophage) 500 mg PO BID [facility] Last Admin: 01/08/17 10:36 Dose: 500 mg Mirtazapine (Remeron) 15 mg PO DAILY [facility] Last Admin: 01/08/17 10:35 Dose: 15 mg Multivitamins/Minerals (Therapeutic-M Tab) 1 tab PO DAILY [facility] Last Admin: 01/08/17 10:35 Dose: 1 tab Non-Formulary Medication (Biotin [Biotin]) 1 tab PO DAILY [facility] Last Admin: 01/08/17 10:43 Dose: Not Given Non-Formulary Medication (Sacubitril/Valsartan [Entresto 24 Mg-26 Mg]) 1 tab PO BID [facility] Last Admin: 01/08/17 10:42 Dose: Not Given Paroxetine HCl (Paxil) 10 mg PO DAILY [facility] Last Admin: 01/08/17 11:00 Dose: 10 mg Spironolactone (Aldactone) 25 mg PO DAILY [facility] Last Admin: 01/08/17 10:59 Dose: 25 mg Vitamin D (Vitamin D 400 Intl Units Tab) 200 intlu PO BID [facility] Last Admin: 01/08/17 10:35 Dose: 200 intlu Results - Vital Signs Recent Vital Signs: Last Vital Signs Temp 97.8 F 01/08/17 11:53 Pulse 50 L 01/08/17 11:53 Resp 18 01/08/17 11:53 BP 95/49 L 01/08/17 11:53 Pulse Ox 98 01/08/17 06:00 - Labs Result Diagrams: 01/08/17 08:50 01/08/17 08:50 Labs: Laboratory Results - last 24 hr 01/07/17 01/08/17 01/08/17 21:34 07:15 08:50 WBC 2.9 L* RBC 4.04 Hgb 12.5 Hct 37.4 MCV 92.6 MCH 30.9 MCHC 33.4 RDW 13.5 Plt Count 133 MPV 10.5 Gran % 38.0 L Lymph % (Auto) 53.8 H [place] % (Auto) 6.5 H Eos % (Auto) 1.4 L Baso % (Auto) 0.3 Gran # 1.11 L Lymph # 1.6 [place] # 0.2 Eos # 0.0 Baso # 0.01 Sodium Potassium Chloride Carbon Dioxide Anion Gap BUN Creatinine Est GFR ( Amer) Est GFR (Non-Af Amer) POC Glucose (mg/dL) 88 92 Random Glucose Calcium Total Bilirubin AST ALT Alkaline Phosphatase Total Protein Albumin Globulin Albumin/Globulin Ratio 01/08/17 01/08/17 08:50 11:16 WBC RBC Hgb Hct MCV MCH MCHC RDW Plt Count MPV Gran % Lymph % (Auto) [place] % (Auto) Eos % (Auto) Baso % (Auto) Gran # Lymph # [place] # Eos # Baso # Sodium 143 Potassium 4.2 Chloride 106 Carbon Dioxide 27 Anion Gap 14 BUN 12 Creatinine 0.6 Est GFR ( Amer) > 60 Est GFR (Non-Af Amer) > 60 POC Glucose (mg/dL) 145 H Random Glucose 81 Calcium 8.9 Total Bilirubin 0.5 AST 36 ALT 37 Alkaline Phosphatase 30 L Total Protein 6.3 Albumin 4.0 Globulin 2.3 Albumin/Globulin Ratio 1.7 Attending/Attestation - Attestation I have personally seen and examined this patient.: Yes I have fully participated in the care of the patient.: Yes I have reviewed all pertinent clinical information: Yes
[2017-01-08] MEDS ORDERED: Apap-Butalbital-Caffeine 325-50-40mg Tab PO PRN (16:20)
--- NOTE | 2017-01-08 19:34 | CON ---
DATE OF SERVICE: 01/08/2017 SERVICE: Cardiology. ATTENDING PROVIDER: Aleta Dye MD. REASON FOR CONSULTATION: Followup cardiac evaluation, admitted with dizziness, possibly secondary to orthostatic hypotension, history of coronary artery disease, cardiomyopathy, status post AICD. BRIEF CLINICAL HISTORY: This is a 56-year-old female with a past medical history significant for coronary artery disease, status post cardiogenic shock, status post non-STEMI on 02/12/2014 in [place], status post PTCA of the circumflex, status post AICD on 02/22/2011 in [place], Biotronik defibrillator, decreased LV function, ejection fraction ranging from 20% to 25%, who was admitted after feeling dizzy, found to have orthostatic hypotension, given IV fluid. Now, the dizziness is completely improved and denies any chest pain, shortness of breath, or palpitation. PAST MEDICAL HISTORY: Significant for coronary artery disease, status post cardiogenic shock, hypertension, diabetes, hyperlipidemia, non-STEMI on 02/12/2014 in [place], the patient underwent PTCA in [place], status post cardiogenic shock, status post AICD on 02/22/2011 with Biotronik pacemaker. PREVIOUS CARDIAC WORKUP: As follows: The patient underwent cardiac catheterization dated 05/08/2015 because of abnormal stress test that shows a patent stent in mid LAD and mid circumflex, normal right coronary artery, small-caliber vessel, ejection fraction 25%, EDP was in the range of 10 to 12, severe apical hypokinesis noted, status post AICD. Medical treatment recommended including digoxin, diuretic, PALLAVI inhibitor, Coreg, spironolactone as blood pressure is tolerated. Suggested to continue aspirin and Plavix. Prior to that, the patient had a stress test on 04/06/2015 prior to cardiac catheterization and that shows abnormal myocardial study, fixed defect, ejection fraction 19%. SOCIAL HISTORY: Denies any history of alcohol abuse. CURRENT MEDICATIONS: The patient is taking spironolactone, Entresto one tablet, Paxil, omeprazole, metformin, meloxicam, ibuprofen, fenofibrate. ALLERGIES: TO PENICILLIN. REVIEW OF SYSTEMS: As per HPI. DIAGNOSTIC STUDIES: EKG shows normal sinus, poor RR progression, no acute ST-T changes noted, but the telemetry shows noncapturing spike of QRS complex. PHYSICAL EXAMINATION: VITAL SIGNS: Temperature afebrile, heart rate 61, blood pressure 94/58. Yesterday, blood pressure was 86/52. HEENT: PERRLA. Extraocular muscles intact. NECK: Supple. No carotid bruits or thyromegaly. CHEST: Clear to auscultation. HEART: S1 and S2 regular. ABDOMEN: Soft. EXTREMITIES: Clubbing and cyanosis negative. LABORATORY DATA: Blood workup as follows: WBC 3, hemoglobin 13.7, hematocrit 40.5, platelet count 154. Chemistry shows sodium 140, potassium 3.6, chloride 100, carbon dioxide 29, anion gap of 17, BUN 16, creatinine 0.6, troponin is 0.01. IMPRESSION: A 56-year-old female with a past medical history significant for cardiogenic shock, status post PTCA of LAD, status post PTCA of circumflex in [place] on 03/14/2014 after having cardiogenic non-ST elevation myocardial infarction, is status post automatic implantable cardioverter-defibrillator on 02/22/2014, Biotronik dual-chamber automatic implantable cardioverter-defibrillator, cardiomyopathy, ejection fraction 25%, admitted with dizziness, syncope secondary to possible hypotension. Telemetry strip shows noncapturing in the pacemaker. RECOMMENDATIONS: We will hold antihypertensive medications with holding parameters, hold for systolic less than 110. Agree to give some gentle diuretics. Continue digoxin. Continue Coreg. We will cut down the Coreg dose to 3.125. Continue atorvastatin. Continue aspirin. Continue Plavix. We will get pacemaker evaluation. We will get an echo to assess LV function. After the echo, the patient will be okay to discharge if remained stable, possibly discharge home today. We will discuss with Dr. Walters. Thank you Dr. Walters for providing us the opportunity in taking care of the patient. Aleta Dye MD
--- NOTE | 2017-01-09 05:16 | CON ---
DATE: 01/08/2017 ADDENDUM REASON FOR ADDENDUM: The patient underwent pacemaker because of . Telemetry shows non-functioning pacemaker and it was reported by tech as malfunction. Automatic implantable cardioverter-defibrillator interrogation was done, made up of [employer] normal functioning, battery life is 80% though it has caused thoracic impedance. Telemetry strip shows pacemaker spikes after the QRS complex, but is normal functioning and his V-paced rhythm from the interrogation of automatic implantable cardioverter-defibrillator. So in summary, it is a normal functioning automatic implantable cardioverter-defibrillator. No issues. Battery life is 78 years. Aleta Dye MD
== END 2017-01-08 17:37 | disposition home or self-care (01) ==
LOC: ED 09:36 → ERH 13:36 → 2RNO 17:14
PROVIDERS: ADMIT Internal Medicine; ATTEND Internal Medicine
DX: H81.10 Benign paroxysmal vertigo, unspecified ear (principal); I25.5 Ischemic cardiomyopathy; I25.10 Atherosclerotic heart disease of native coronary artery without angina pectoris; I11.0 Hypertensive heart disease with heart failure; I50.9 Heart failure, unspecified; E11.9 Type 2 diabetes mellitus without complications; I25.2 Old myocardial infarction; Z79.84 Long term (current) use of oral hypoglycemic drugs; Z88.0 Allergy status to penicillin; Z95.5 Presence of coronary angioplasty implant and graft; Z95.810 Presence of automatic (implantable) cardiac defibrillator
CPT/HCPCS: 36415; 70450; 71010; 80053; 82550; 82948; 83615; 83880; 84484; 85025; 93005; 97116; 97162; 99285; G0378; G8978; G8979; G8980; J7040

== ENCOUNTER 2017-06-30 18:00 | Emergency (ER) | payer OTHER ==
[2017-06-30 18:01] VITALS: PULSE 61
--- NOTE | 2017-06-30 19:02 | ED PDOC ---
Arrival/HPI - General Chief Complaint: Cough, Cold, Congestion Time Seen by Provider: 06/30/17 19:02 Historian: Patient - History of Present Illness Narrative History of Present Illness (Text): 06/30/17 19:02 This is a 56 yo Yi F with PMH of multiple IL's, CAD s/p stenting of LAD AND LCX, Ischemic cardiomyopathy w/ EF 25%, s/p defibrillator placement, DM, HTN, and recent cardiac cath (May 2015) who presented to [facility] [place] with cought x 6 weeks. Patient also admits mild SOB. Time/Duration: Other (noncontributory) Context: Home Past Medical History - Provider Review Nursing Documentation Reviewed: Yes - Infectious Disease Hx of Infectious Diseases: None - Cardiac Hx Congestive Heart Failure: Yes Hx IL: Yes (stents) Hx Pacemaker: Yes (02/2016) Other/Comment: ischemic cardio myopathy. L pacemaker - Pulmonary Other/Comment: exertional SOB, sleeps on 3 pillows - Neurological Hx Neurological Disorder: No - HEENT Hx HEENT Disorder: No - Renal Hx Renal Disorder: No - Endocrine/Metabolic Hx Diabetes Mellitus Type 2: Yes - Hematological/Oncological Hx Blood Disorders: No - Integumentary Hx Dermatological Disorder: No - Musculoskeletal/Rheumatological Hx Unsteady Gait: Yes (cane) - Gastrointestinal Hx Gastroesophageal Reflux: Yes - Genitourinary/Gynecological Hx Genitourinary Disorders: Yes Hx Incontinence: Yes - Psychiatric Hx Psychophysiologic Disorder: Yes Hx Depression: Yes Hx Substance Use: No - Surgical History Hx Coronary Stent: Yes - Anesthesia Hx Anesthesia: Yes - Suicidal Assessment Feels Threatened In Home Enviroment: No Family/Social History - Physician Review Nursing Documentation Reviewed: Yes Family/Social History: Other (noncontributory) Smoking Status: Never Smoked Hx Alcohol Use: No Hx Substance Use: No Hx Substance Use Treatment: No Allergies/Home Meds Allergies/Adverse Reactions: Allergies Penicillins Allergy (Verified 01/07/17 09:47) RASH Home Medications: Home Meds Medication Instructions Recorded Confirmed Atorvastatin Calcium [Lipitor] 80 mg PO DAILY 06/09/14 06/30/17 Clopidogrel [Plavix] 75 mg PO DAILY 06/09/14 06/30/17 Spironolactone [Aldactone] 25 mg PO DAILY 06/09/14 06/30/17 Aspirin [Aspirin Chewable] 81 mg PO DAILY 01/07/17 06/30/17 Biotin [Biotin] 1 tab PO DAILY 01/07/17 06/30/17 Clobetasol 0.05% [Temovate 0.05% 1 appful TOP TID 01/07/17 06/30/17 OINTMENT] Digoxin [Digitek] 125 mcg PO DAILY 01/07/17 06/30/17 Docusate [Colace] 100 mg PO BID 01/07/17 06/30/17 Ergocalciferol (Vitamin D2) 50,000 units PO Q7D 01/07/17 06/30/17 [Vitamin D2] Fenofibrate [Triglide] 160 mg PO DAILY 01/07/17 06/30/17 Folic Acid [Folic Acid] 1,000 mg PO DAILY 01/07/17 06/30/17 Ibuprofen [Motrin Tab] 400 mg PO TID 01/07/17 06/30/17 Lipase/Protease/Amylase [Creon Dr 1 tab PO TID 01/07/17 06/30/17 24,000 Units Capsule] Meloxicam [Meloxicam] 15 mg PO DAILY 01/07/17 06/30/17 MetFORMIN [glucoPHAGE] 500 mg PO BID 01/07/17 06/30/17 Mirtazapine [Remeron] 15 mg PO DAILY 01/07/17 06/30/17 Mv,Min10/Folic Acid/D3/Ala/Lut 1 tab PO DAILY 01/07/17 06/30/17 [Strovite One Caplet] Omeprazole/Sodium Bicarbonate 1 tab PO DAILY 01/07/17 06/30/17 [Omeprazole-Bicarb 40-1,100 Cap] PARoxetine [Paxil] 10 mg PO DAILY 01/07/17 06/30/17 Sacubitril/Valsartan [Entresto 24 1 tab PO BID 01/07/17 06/30/17 mg-26 mg] Calcium Carbonate [Calcium] 600 mg PO DAILY 06/30/17 06/30/17 Carvedilol [Coreg] 6.25 mg PO BID 06/30/17 06/30/17 Furosemide [Lasix] 1 tab PO DAILY 06/30/17 06/30/17 Meclizine [Antivert] 25 mg PO TID PRN 06/30/17 06/30/17 Review of Systems - Review of Systems Constitutional: Normal. absent: Fatigue, Weight Change Eyes: Normal ENT: Sore Throat. absent: Rhinorrhea, Epistaxis Respiratory: SOB, Cough. absent: Sputum, Wheezing Cardiovascular: Normal. absent: Chest Pain, Palpitations Gastrointestinal: Normal. absent: Abdominal Pain, Nausea, Vomiting Genitourinary Female: Normal Musculoskeletal: Normal Skin: Normal Neurological: Normal Endocrine: Normal Hemo/Lymphatic: Normal Psychiatric: Normal Physical Exam Vital Signs Temp Pulse Resp BP Pulse Ox 06/30/17 21:09 124/69 06/30/17 18:40 98.7 F 77 18 106/69 97 Temperature: Afebrile Blood Pressure: Normal Pulse: Regular Respiratory Rate: Normal Appearance: Positive for: Well-Appearing, Non-Toxic, Comfortable Pain Distress: None Mental Status: Positive for: Alert and Oriented X 3 - Systems Exam Head: Present: Atraumatic, Normocephalic Pupils: Present: PERRL Extroacular Muscles: Present: EOMI Conjunctiva: Present: Normal Mouth: Present: Moist Mucous Membranes Neck: Present: Normal Range of Motion Respiratory/Chest: Present: Clear to Auscultation, Good Air Exchange. No: Respiratory Distress, Accessory Muscle Use Cardiovascular: Present: Regular Rate and Rhythm, Normal S1, S2. No: Murmurs Abdomen: Present: Normal Bowel Sounds. No: Tenderness, Distention, Peritoneal Signs Back: Present: Normal Inspection Upper Extremity: Present: Normal Inspection. No: Cyanosis, Edema Lower Extremity: Present: Normal Inspection. No: Edema Neurological: Present: GCS=15, CN II-XII Intact, Speech Normal Skin: Present: Warm, Dry, Normal Color. No: Rashes Psychiatric: Present: Alert, Oriented x 3, Normal Insight, Normal Concentration Medical Decision Making ED Course and Treatment: 06/30/17 22:27 Patient is refusing to be hospitalized for SOB, and mild elevated BNP. Patient and her wanto leave hospital AMA. They both understand risk including IL, severe infection, chronic suffering, worsening of sob, 06/30/17 22:28 Leaving Against Medical Advice (AMA): This patient is choosing to leave against medical advice. The EP has personally explained to the pt that choosing to do so may result in permanent bodily harm or . The EP discussed at great length that without further evaluation and monitoring there may be unforeseen circumstances and/or deterioration causing permanent bodily harm or as a result of their choice. The pt verbalized these risks back to the physician in laymans terms. The pt is alert, oriented, and shows the mental capacity to make clear decisions regarding the pts health care at this time. The pt continues to wish to leave against medical advice. In light of the pts decision to leave AMA, follow-up has been recommended and the pt is aware of the importance of following up as instructed. The pt has been advised that they should return to the ED immediately if they change their mind at any time, or if thier condition begins to change or worsen in any way. Re-evaluation Time: 22:29 Reassessment Condition: Re-examined, Improved - Lab Interpretations Lab Results: 06/30/17 19:35 06/30/17 19:35 Lab Results 06/30/17 19:35: Sodium 143, Chloride 104, Potassium 4.3, Carbon Dioxide 28, Anion Gap 16, BUN 17, Creatinine 0.5 L, Est GFR ( Amer) > 60, Est GFR ( Non-Af Amer) > 60, Random Glucose 96, Calcium 9.6, Total Bilirubin 0.3, AST 33, ALT 52, Alkaline Phosphatase 29 L, Lactate Dehydrogenase 587, Total Creatine Kinase 49, Troponin I < 0.01, NT-Pro-B Natriuret Pep 539 H, Total Protein 6.9, Albumin 4.4, Globulin 2.6, Albumin/Globulin Ratio 1.7 06/30/17 19:35: pO2 38, VBG pH 7.35, VBG pCO2 54.0, VBG HCO3 29.8 H, VBG Total CO2 31.5 H, VBG O2 Sat (Calc) 75.0 H, VBG Base Excess 2.9 H, VBG Potassium 4.1, Sodium 139.0, Chloride 105.0, Glucose 97, Lactate 1.2, FiO2 21.0, Venous Blood Potassium 4.1 06/30/17 19:35: WBC 3.0 L, RBC 4.16, Hgb 12.8, Hct 38.6, MCV 92.8, MCH 30.8, MCHC 33.2, RDW 13.5, Plt Count 138, MPV 11.4 H, Gran % 28.6 L, Lymph % (Auto) 61.8 H, [place] % (Auto) 7.6 H, Eos % (Auto) 1.7, Baso % (Auto) 0.3, Gran # 0.86 L , Lymph # (Auto) 1.9, [place] # (Auto) 0.2, Eos # (Auto) 0.1, Baso # (Auto) 0.01 I have reviewed the lab results: Yes Interpretation: No sign. chg./baseline - RAD Interpretation Narrative RAD Interpretations (Text): 06/30/17 22:29 Chest x-rays: NAD Radiology Orders: 06/30/17 19:15 CHEST PORTABLE [RAD] Stat - EKG Interpretation Interpreted by ED Physician: Yes (NSR @ [address] changes) Type: 12 lead EKG Comparison: Similar to previous EKG - Medication Orders Current Medication Orders: Discontinued Medications Famotidine (Pepcid 20mg/50ml Premix) 20 mg in 50 mls @ 100 mls/hr IVPB STAT STA Stop: 06/30/17 19:46 Last Admin: 06/30/17 19:47 Dose: 100 mls/hr eMAR Start Stop Document 06/30/17 19:47 IT (Rec: 06/30/17 19:47 IT [id number]) Intravenous Solution Start Date 06/30/17 Start Time 19:47 End Date 06/30/17 Disposition/Present on Arrival - Present on Arrival Any Indicators Present on Arrival: No History of DVT/PE: No History of Uncontrolled Diabetes: No Urinary Catheter: No History of Decub. Ulcer: No History Surgical Site Infection Following: None - Disposition Have Diagnosis and Disposition been Completed?: Yes Diagnosis: Shortness of breath, Cough Disposition: AGAINST MEDICAL ADVICE Disposition Time: 22:30 Condition: UNKNOWN Additional Instructions: You need to see Dr. Corbin tomorrow for revaluation. Return to emergency immediately if symptoms worsen. Prescriptions: Famotidine [Pepcid] 40 mg PO DAILY #10 tablet Promethazine [Phenergan Syrup] 6.25 mg PO Q6H PRN #120 ml PRN Reason: Cough And Congestion Referrals: Donis Corbin MD [Primary Care Provider] - Follow up with primary Forms: [employer] ([place])
[2017-06-30] MEDS ORDERED: Famotidine 20mg/50ml 20 MG/50 ML BAG IVPB STA (19:17)
[2017-06-30 19:43] LABS: BASO # 0.01 K/mm3 (0.0-2.0); BASO % 0.3 % (0.0-3.0); EOS # 0.1 (0.0-0.7); EOS % 1.7 % (1.5-5.0); GRAN # 0.86 (1.4-6.5); GRAN % 28.6 % (50.0-68.0); HEMOGLOBIN 12.8 g/dL (12.0-16.0); LYMPH # 1.9 (1.2-3.4); LYMPH % 61.8 % (22.0-35.0); MEAN CELL VOLUME 92.8 fl (80.0-105.0); MEAN CORPUSCULAR HEMOGLOBIN 30.8 pg (25.0-35.0); MEAN CORPUSCULAR HGB CONC 33.2 g/dl (31.0-37.0); MEAN PLATELET VOLUME 11.4 fl (7.0-11.0); MONO # 0.2 (0.1-0.6); MONO % 7.6 % (1.0-6.0); RBC 4.16 10^6/uL (3.5-6.1); RED CELL DISTRIBUTION WIDTH 13.5 % (11.5-14.5)
[2017-06-30 19:46] LABS: VENOUS BLOOD GAS BASE EXCESS 2.9 mmol/L (0.0-2.0); VENOUS BLOOD GAS PO2 38 mm/Hg (30-55); VENOUS BLOOD PH 7.35 (7.32-7.43)
[2017-06-30 19:55] LABS: ALB/GLOB RATIO 1.7 (1.1-1.8); ALBUMIN 4.4 g/dL (3.0-4.8); ALT/SGPT 52 U/L (7-56); AST/SGOT 33 U/L (14-36); BLOOD UREA NITROGEN 17 mg/dL (7-21); CALCIUM 9.6 mg/dL (8.4-10.5); GFR AFRICAN-AMERICAN > 60; GFR NON-AFRICAN AMERICAN > 60
[2017-06-30 20:07] LABS: B-TYPE NATRIURETIC PEPTIDE 539 pg/mL (0-450); TROPONIN I < 0.01 ng/mL
[2017-06-30] MEDS ORDERED: Promethazine/Cod 6.25mg-10mg/5ml Syr UD PO STA (22:37)
[2017-06-30 22:46] VITALS: BP 135/85; PULSE 72; RESP 17; TEMP 98; O2SAT 98
--- NOTE | 2017-07-01 08:09 | RAD ---
HISTORY: sob COMPARISON: 01/07/2017 FINDINGS: LUNGS: No active pulmonary disease. PLEURA: No significant pleural effusion identified, no pneumothorax apparent. CARDIOVASCULAR: Mild cardiomegaly. Single lead pacemaker OSSEOUS STRUCTURES: No significant abnormalities. VISUALIZED UPPER ABDOMEN: Normal. OTHER FINDINGS: None. IMPRESSION: No active disease.
--- NOTE | 2017-07-01 12:34 | CARD ---
APPROVED REPORT EKG Measurement Heart [id number] <Conclusion> Normal sinus rhythm Anteroseptal infarct, age undetermined Abnormal ECG
== END 2017-06-30 22:46 | disposition left against medical advice (07) ==
LOC: ED 18:00
DX: R06.02 Shortness of breath (principal); R05 Cough; I25.10 Atherosclerotic heart disease of native coronary artery without angina pectoris; I25.2 Old myocardial infarction; I10 Essential (primary) hypertension; E11.9 Type 2 diabetes mellitus without complications; Z95.810 Presence of automatic (implantable) cardiac defibrillator

== ENCOUNTER 2017-09-24 15:06 | Emergency (ER) | payer MEDICAID ==
[2017-09-24 15:06] VITALS: PULSE 61
[2017-09-24 15:34] VITALS: TEMP 98; O2SAT 100
--- NOTE | 2017-09-24 16:00 | ED PDOC ---
Arrival/HPI - General Chief Complaint: Weakness/Neurological Deficit Time Seen by Provider: 09/24/17 15:57 Historian: Patient - History of Present Illness Narrative History of Present Illness (Text): 09/24/17 16:00 A 57 year old female, whose past medical history includes diabetes, CHF and pancreatitis, non compliant with medications, presents to the emergency department complaining of severe generalized weakness and fatigue. Patient reports she feels like her heart will stop and she will , reports feeling like this for 3-4 days. Reports to feeling overwhelmed today, symptoms didn't improve after eating. Denies feeling sick recently. Patient denies any chest pain, difficulty breathing or any other complaints at this time. Electric Meter Tester: Dr. Dye PMD: Dr. Corbin Time/Duration: < week Symptom Onset: Sudden Symptom Course: Unchanged Activities at Onset: Rest Context: Home Past Medical History - Provider Review Nursing Documentation Reviewed: Yes - Infectious Disease Hx of Infectious Diseases: None - Cardiac Other/Comment: ischemic cardio myopathy. L pacemaker - Pulmonary Other/Comment: exertional SOB, sleeps on 3 pillows - Neurological Hx Neurological Disorder: No - HEENT Hx HEENT Disorder: No - Renal Hx Renal Disorder: No - Endocrine/Metabolic Hx Diabetes Mellitus Type 2: Yes - Hematological/Oncological Hx Blood Disorders: No - Integumentary Hx Dermatological Disorder: No - Musculoskeletal/Rheumatological Hx Unsteady Gait: Yes (cane) - Gastrointestinal Hx Gastroesophageal Reflux: Yes - Genitourinary/Gynecological Hx Genitourinary Disorders: Yes Hx Incontinence: Yes - Psychiatric Hx Psychophysiologic Disorder: Yes Hx Depression: Yes Hx Substance Use: No - Surgical History Hx Coronary Stent: Yes - Anesthesia Hx Anesthesia: Yes - Suicidal Assessment Feels Threatened In Home Enviroment: No Family/Social History - Physician Review Nursing Documentation Reviewed: Yes Family/Social History: No Known Family HX Smoking Status: Never Smoked Hx Alcohol Use: No Hx Substance Use: No Hx Substance Use Treatment: No Allergies/Home Meds Allergies/Adverse Reactions: Allergies Penicillins Allergy (Verified 09/24/17 15:29) RASH Home Medications: Home Meds Medication Instructions Recorded Confirmed Atorvastatin Calcium [Lipitor] 80 mg PO DAILY 06/09/14 09/24/17 Clopidogrel [Plavix] 75 mg PO DAILY 06/09/14 09/24/17 Spironolactone [Aldactone] 25 mg PO DAILY 06/09/14 09/24/17 Aspirin [Aspirin Chewable] 81 mg PO DAILY 01/07/17 09/24/17 Digoxin [Digitek] 125 mcg PO DAILY 01/07/17 09/24/17 Docusate [Colace] 100 mg PO BID 01/07/17 09/24/17 Ergocalciferol (Vitamin D2) 50,000 units PO Q7D 01/07/17 09/24/17 [Vitamin D2] Fenofibrate [Triglide] 160 mg PO DAILY 01/07/17 09/24/17 Folic Acid [Folic Acid] 1,000 mg PO DAILY 01/07/17 09/24/17 MetFORMIN [glucoPHAGE] 500 mg PO BID 01/07/17 09/24/17 Mirtazapine [Remeron] 15 mg PO DAILY 01/07/17 09/24/17 Mv,Min10/Folic Acid/D3/Ala/Lut 1 tab PO DAILY 01/07/17 09/24/17 [Strovite One Caplet] Omeprazole/Sodium Bicarbonate 1 tab PO DAILY 01/07/17 09/24/17 [Omeprazole-Bicarb 40-1,100 Cap] Sacubitril/Valsartan [Entresto 24 1 tab PO BID 01/07/17 09/24/17 mg-26 mg] Furosemide [Lasix] 1 tab PO DAILY 06/30/17 09/24/17 Meclizine [Antivert] 25 mg PO TID PRN 06/30/17 09/24/17 Alendronate Sodium [Binosto] 70 mg PO DAILY 09/24/17 09/24/17 Ketoconazole 2% Shampoo [Nizoral] 0 applic TOP ONCE 09/24/17 09/24/17 Lactulose [Constulose] 0 gm PO DAILY 09/24/17 09/24/17 Lipase/Protease/Amylase [Creon 1 ecc PO DAILY 09/24/17 09/24/17 [id number]] Pantoprazole [Protonix] 40 mg PO DAILY 09/24/17 09/24/17 Vitamin B Complex [Vitamin B50 1 cap PO DAILY 09/24/17 09/24/17 Super Complex] Review of Systems - Physician Review All systems were reviewed & negative as marked: Yes - Review of Systems Constitutional: Fatigue, Other (generalized weakness) Respiratory: absent: SOB Cardiovascular: absent: Chest Pain Physical Exam Vital Signs Reviewed: Yes Vital Signs Temp Pulse Resp BP Pulse Ox 09/24/17 18:27 63 18 100 09/24/17 17:41 67 20 92/53 L 100 09/24/17 16:38 68 18 100 09/24/17 15:29 98.0 F 71 18 121/65 100 Temperature: Afebrile Blood Pressure: Normal Pulse: Regular Respiratory Rate: Normal Appearance: Positive for: Well-Appearing, Non-Toxic, Comfortable Pain Distress: None Mental Status: Positive for: Alert and Oriented X 3 - Systems Exam Head: Present: Atraumatic, Normocephalic Pupils: Present: PERRL Extroacular Muscles: Present: EOMI Conjunctiva: Present: Normal Mouth: Present: Moist Mucous Membranes Neck: Present: Normal Range of Motion Respiratory/Chest: Present: Clear to Auscultation, Good Air Exchange. No: Respiratory Distress, Accessory Muscle Use, Rales, Rhonchi Cardiovascular: Present: Regular Rate and Rhythm, Normal S1, S2. No: Murmurs Abdomen: No: Tenderness, Distention, Peritoneal Signs Back: Present: Normal Inspection Upper Extremity: Present: Normal Inspection. No: Cyanosis, Edema Lower Extremity: Present: Normal Inspection. No: Edema Neurological: Present: GCS=15, CN II-XII Intact, Speech Normal Skin: Present: Warm, Dry, Normal Color. No: Rashes Psychiatric: Present: Alert, Oriented x 3, Normal Insight, Normal Concentration Medical Decision Making ED Course and Treatment: 09/24/17 15:58 Impression: A 57 year old female with generalized weakness and fatigue. Plan: -- EKG -- Chest X-ray -- labs -- Reassess and disposition Prior Visits: Notes and results from previous visits were reviewed. Patient was last seen in the emergency department on 06/30/17 for evaluation of cough. Progress Notes: EKG: Ordered, reviewed, and independently interpreted the EKG. Rate : 61 BPM Rhythm : NSR Interpretation : ST elevations V2, V3, V4; reciprocal changes in 2,3, avf; anteroseptal infarct Comparison : No change from EKG on 01/07/[address] Corbin to admit patient, Dr Corbin ask that we give this patient to the hospitalist, hospitalist states he does not want to be involved with this patient, and that he spoke to Dr. Corbin personally, and as a result of their conversation to give Dr Corbin's patient to [employer] aeronautical engineer rather than the hospitalist service. I spoke with Dr. Corbin, and he recommended to call Dr. Dye, Electric Meter Tester. Electric Meter Tester states he knows the patient very well and that he just saw her last week. The patient in his opinion doesn't need to be admitted, patient with anxiety not CHF. Recommends patient to be discharged home. Dr Dye is happy to see her in his office tomorrow or Friday. 09/24/17 18:38 - Lab Interpretations Lab Results: 09/24/17 15:20 09/24/17 15:20 Lab Results 09/24/17 15:20: Digoxin 0.6 L 09/24/17 15:20: Sodium 145, Potassium 4.1, Chloride 103, Carbon Dioxide 26, Anion Gap 20, BUN 22 H, Creatinine 0.6 L, Est GFR ( Amer) > 60, Est GFR ( Non-Af Amer) > 60, Random Glucose 94, Calcium 9.4, Total Bilirubin 0.4, AST 32, ALT 41, Alkaline Phosphatase 32 L, Lactate Dehydrogenase 547, Total Creatine Kinase 48, Troponin I < 0.01, NT-Pro-B Natriuret Pep 375, Total Protein 7.3, Albumin 4.6, Globulin 2.6, Albumin/Globulin Ratio 1.8 09/24/17 15:20: PT 12.1, INR 1.06 09/24/17 15:20: WBC 2.7 L*, RBC 4.38, Hgb 13.4, Hct 39.4, MCV 90.0, MCH 30.6, MCHC 34.0, RDW 13.3, Plt Count 167, MPV 10.8, Gran % 28.2 L, Lymph % (Auto) 62.2 H, [place] % (Auto) 8.1 H, Eos % (Auto) 1.1 L, Baso % (Auto) 0.4, Gran # 0.76 L, Lymph # (Auto) 1.7, [place] # (Auto) 0.2, Eos # (Auto) 0.0, Baso # (Auto) 0.01 I have reviewed the lab results: Yes - RAD Interpretation Radiology Orders: 09/24/17 15:34 CHEST PORTABLE [RAD] Stat - EKG Interpretation Interpreted by ED Physician: Yes Type: 12 lead EKG - Scribe Statement The provider has reviewed the documentation as recorded by the Deanne Echols Provider Scribe Attestation: All medical record entries made by the Brigitteibe were at my direction and personally dictated by me. I have reviewed the chart and agree that the record accurately reflects my personal performance of the history, physical exam, medical decision making, and the department course for this patient. I have also personally directed, reviewed, and agree with the discharge instructions and disposition. Disposition/Present on Arrival - Present on Arrival Any Indicators Present on Arrival: No History of DVT/PE: No History of Uncontrolled Diabetes: No Urinary Catheter: No History of Decub. Ulcer: No History Surgical Site Infection Following: None - Disposition Have Diagnosis and Disposition been Completed?: Yes Diagnosis: CHF (congestive heart failure), Anxiety Disposition: HOME/ ROUTINE Disposition Time: 18:11 Patient Plan: Discharge Condition: GOOD
[2017-09-24 16:13] LABS: BASO # 0.01 K/mm3 (0.0-2.0); BASO % 0.4 % (0.0-3.0); EOS % 1.1 % (1.5-5.0); GRAN # 0.76 (1.4-6.5); GRAN % 28.2 % (50.0-68.0); HEMOGLOBIN 13.4 g/dL (12.0-16.0); LYMPH # 1.7 (1.2-3.4); LYMPH % 62.2 % (22.0-35.0); MEAN CORPUSCULAR HEMOGLOBIN 30.6 pg (25.0-35.0); MEAN PLATELET VOLUME 10.8 fl (7.0-11.0); MONO # 0.2 (0.1-0.6); MONO % 8.1 % (1.0-6.0); RBC 4.38 10^6/uL (3.5-6.1); RED CELL DISTRIBUTION WIDTH 13.3 % (11.5-14.5)
[2017-09-24 16:18] LABS: WHITE BLOOD COUNT 2.7 10^3/ul (4.5-11.0)
[2017-09-24 16:20] LABS: INR 1.06 (0.93-1.08); PROTHROMBIN TIME 12.1 SECONDS (9.4-12.5)
[2017-09-24 16:24] LABS: ALB/GLOB RATIO 1.8 (1.1-1.8); ALBUMIN 4.6 g/dL (3.0-4.8); ALT/SGPT 41 U/L (7-56); AST/SGOT 32 U/L (14-36); BLOOD UREA NITROGEN 22 mg/dL (7-21); CALCIUM 9.4 mg/dL (8.4-10.5); GFR AFRICAN-AMERICAN > 60; GFR NON-AFRICAN AMERICAN > 60
[2017-09-24 16:34] LABS: B-TYPE NATRIURETIC PEPTIDE 375 pg/mL (0-450); TROPONIN I < 0.01 ng/mL
[2017-09-24 17:41] VITALS: BP 92/53
--- NOTE | 2017-09-24 18:06 | RAD ---
HISTORY: chest pain COMPARISON: 08/28/2017 FINDINGS: LUNGS: No active pulmonary disease. PLEURA: No significant pleural effusion identified, no pneumothorax apparent. CARDIOVASCULAR: Normal heart size. AICD. OSSEOUS STRUCTURES: No significant abnormalities. VISUALIZED UPPER ABDOMEN: Normal. OTHER FINDINGS: None. IMPRESSION: No active disease.
[2017-09-24 18:28] VITALS: PULSE 63; RESP 18
--- NOTE | 2017-09-25 13:14 | CARD ---
APPROVED REPORT EKG Measurement Heart [id number] <Conclusion> Normal sinus rhythm Anteroseptal infarct, age undetermined ST & T wave abnormality, consider lateral ischemia Abnormal ECG
== END 2017-09-24 18:28 | disposition home or self-care (01) ==
LOC: ED 15:06 → UNDOADMIN 17:46 → ERH 17:46
DX: I50.9 Heart failure, unspecified (principal); F41.9 Anxiety disorder, unspecified; E11.9 Type 2 diabetes mellitus without complications; K21.9 Gastro-esophageal reflux disease without esophagitis; Z95.0 Presence of cardiac pacemaker

== ENCOUNTER 2017-10-25 20:03 | Emergency (ER) | payer MEDICAID ==
[2017-10-25 20:03] VITALS: PULSE 61
[2017-10-25 20:16] VITALS: PULSE 68; RESP 20; O2SAT 100
[2017-10-25] MEDS ORDERED: Oxycodone/Acetaminophen 5/325 mg Tab PO STA (20:37)
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
[2017-10-25] MEDS: TDAP Vaccine 0.5 mL Syr IM ONE ×2 (21:48→22:04)
[2017-10-26 04:20] VITALS: BP 127/68; TEMP 97.8
--- NOTE | 2017-10-26 08:36 | RAD ---
PROCEDURE: Right Ankle Radiographs. HISTORY: right ankle pain COMPARISON: None FINDINGS: BONES: Normal. No fracture. JOINTS: Normal. No osteoarthritis. Ankle mortise maintained. Talar dome intact SOFT TISSUES: Mild soft swelling overlying the inferolateral margin of the lateral malleolus OTHER FINDINGS: None. IMPRESSION: No evidence of acute displaced fracture nor.
--- NOTE | 2017-10-26 08:37 | RAD ---
PROCEDURE: Left Knee Radiographs. HISTORY: Pain. COMPARISON: None. FINDINGS: BONES: Normal. No fracture. JOINTS: Normal. No osteoarthritis. JOINT EFFUSION: None. OTHER FINDINGS: None. IMPRESSION: Normal radiographs of the left knee.
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
== END 2017-10-25 20:35 | disposition home or self-care (01) ==
LOC: ED 20:03
DX: S96.911A Strain of unspecified muscle and tendon at ankle and foot level, right foot, initial encounter (principal); S76.012A Strain of muscle, fascia and tendon of left hip, initial encounter; T14.8XXA Other injury of unspecified body region, initial encounter; V03.10XA Pedestrian on foot injured in collision with car, pick-up truck or van in traffic accident, initial encounter; Y92.410 Unspecified street and highway as the place of occurrence of the external cause; M54.9 Dorsalgia, unspecified; M79.605 Pain in left leg; E11.9 Type 2 diabetes mellitus without complications
CPT/HCPCS: 72100; 72220; 73503; 73552; 73560; 73610; 96372; 99282; J1885

== ENCOUNTER 2017-11-20 21:00 | Observation (INO) | payer MEDICAID ==
[2017-11-20 21:00] VITALS: PULSE 61
--- NOTE | 2017-11-20 21:13 | ED PDOC ---
Arrival/HPI - General Time Seen by Provider: 11/20/17 21:03 Historian: Patient, EMS - History of Present Illness Narrative History of Present Illness (Text): 11/20/17 21:12 Shila Salcido is a 57 year old female, whose past medical history includes multiple MIs with multiple coronary stents, ischemic cardiomyopathy, diabetes, and hypertension, who presents to the Emergency department brought in by EMS complaining of chest pain. Patient states she developed mid-sternal chest pain with associated shortness of breath and dizziness a few hours prior and went to her PMD's office. Patient's PMD gave patient 3 aspirin prior to arrival and referred patient to Emergency Department for further evaluation. Patient denies any fever, chills, nausea, vomiting, diarrhea, urinary symptoms, back pain, neck pain, headache, or any other complaints. PMD: Dr. Corbin Filling Layer Up: Dr. Dye Time/Duration: Other (today) Symptom Onset: Gradual Symptom Course: Unchanged Activities at Onset: Light Past Medical History - Provider Review Nursing Documentation Reviewed: Yes - Past History Past History: Non-Contributing - Infectious Disease Hx of Infectious Diseases: None - Tetanus Immunization Tetanus Immunization: Unknown - Cardiac Other/Comment: ischemic cardio myopathy. L pacemaker - Pulmonary Other/Comment: exertional SOB, sleeps on 3 pillows - Neurological Hx Neurological Disorder: No - HEENT Hx HEENT Disorder: No - Renal Hx Renal Disorder: No - Endocrine/Metabolic Hx Diabetes Mellitus Type 2: Yes - Hematological/Oncological Hx Blood Disorders: No - Integumentary Hx Dermatological Disorder: No - Musculoskeletal/Rheumatological Hx Unsteady Gait: Yes (cane) - Gastrointestinal Hx Gastroesophageal Reflux: Yes - Genitourinary/Gynecological Hx Genitourinary Disorders: Yes Hx Incontinence: Yes - Psychiatric Hx Psychophysiologic Disorder: Yes Hx Depression: Yes Hx Substance Use: No - Surgical History Hx Coronary Stent: Yes Other/Comment: pacemaker placement 2014 - Anesthesia Hx Anesthesia: Yes Hx Anesthesia Reactions: No Hx Malignant Hyperthermia: No - Suicidal Assessment Feels Threatened In Home Enviroment: No Family/Social History - Physician Review Nursing Documentation Reviewed: Yes Family/Social History: Unknown Family HX Smoking Status: Never Smoked Hx Alcohol Use: No Hx Substance Use: No Hx Substance Use Treatment: No Allergies/Home Meds Allergies/Adverse Reactions: Allergies Penicillins Allergy (Verified 11/20/17 21:07) RASH Home Medications: Home Meds Medication Instructions Recorded Confirmed Clopidogrel [Plavix] 75 mg PO DAILY 06/09/14 11/20/17 Spironolactone [Aldactone] 25 mg PO DAILY 06/09/14 11/20/17 Aspirin [Aspirin Chewable] 81 mg PO DAILY 01/07/17 11/20/17 Docusate [Colace] 100 mg PO BID 01/07/17 11/20/17 Ergocalciferol (Vitamin D2) 50,000 units PO Q7D 01/07/17 11/20/17 [Vitamin D2] Fenofibrate [Triglide] 160 mg PO DAILY 01/07/17 11/20/17 Folic Acid [Folic Acid] 1,000 mg PO DAILY 01/07/17 11/20/17 MetFORMIN [glucoPHAGE] 500 mg PO BID 01/07/17 11/20/17 Mirtazapine [Remeron] 15 mg PO DAILY 01/07/17 11/20/17 Mv,Min10/Folic Acid/D3/Ala/Lut 1 tab PO DAILY 01/07/17 11/20/17 [Strovite One Caplet] Omeprazole/Sodium Bicarbonate 1 tab PO DAILY 01/07/17 11/20/17 [Omeprazole-Bicarb 40-1,100 Cap] Sacubitril/Valsartan [Entresto 24 1 tab PO BID 01/07/17 11/20/17 mg-26 mg] Furosemide [Lasix] 1 tab PO DAILY 06/30/17 11/20/17 Meclizine [Antivert] 25 mg PO TID PRN 06/30/17 11/20/17 Ketoconazole 2% Shampoo [Nizoral] 0 applic TOP ONCE 09/24/17 11/20/17 Lactulose [Constulose] 0 gm PO DAILY 09/24/17 11/20/17 Lipase/Protease/Amylase [Creon 1 ecc PO DAILY 09/24/17 11/20/17 [id number] U] Pantoprazole [Protonix] 40 mg PO DAILY 09/24/17 11/20/17 Vitamin B Complex [Vitamin B50 1 cap PO DAILY 09/24/17 11/20/17 Super Complex] Atorvastatin [Lipitor] 80 mg PO DAILY 11/20/17 11/20/17 Review of Systems - Physician Review All systems were reviewed & negative as marked: Yes - Review of Systems Constitutional: Normal. absent: Fevers Eyes: Normal ENT: Normal Respiratory: SOB Cardiovascular: Chest Pain Gastrointestinal: Normal. absent: Abdominal Pain, Diarrhea, Nausea, Vomiting Genitourinary Female: Normal. absent: Dysuria, Frequency, Hematuria, Urine Output Changes Musculoskeletal: Normal. absent: Back Pain, Neck Pain Skin: Normal. absent: Rash Neurological: Dizziness. absent: Headache Endocrine: Normal Hemo/Lymphatic: Normal Psychiatric: Normal Physical Exam Vital Signs Reviewed: Yes Vital Signs Temp Pulse Resp BP Pulse Ox 11/20/17 21:10 98.1 F 76 20 129/71 100 Temperature: Afebrile Blood Pressure: Normal Pulse: Regular Respiratory Rate: Normal Appearance: Positive for: Well-Appearing, Non-Toxic, Comfortable Pain Distress: None Mental Status: Positive for: Alert and Oriented X 3 - Systems Exam Head: Present: Atraumatic, Normocephalic Pupils: Present: PERRL Extroacular Muscles: Present: EOMI Conjunctiva: Present: Normal Mouth: Present: Moist Mucous Membranes Neck: Present: Normal Range of Motion. No: Meningeal Signs, MIDLINE TENDERNESS , Paraspinal Tenderness Respiratory/Chest: Present: Clear to Auscultation, Good Air Exchange. No: Respiratory Distress, Accessory Muscle Use Cardiovascular: Present: Regular Rate and Rhythm, Normal S1, S2. No: Murmurs Abdomen: No: Tenderness, Distention, Peritoneal Signs Back: Present: Normal Inspection. No: CVA Tenderness, Midline Tenderness, Paraspinal Tenderness Upper Extremity: Present: Normal Inspection. No: Cyanosis, Edema Lower Extremity: Present: Normal Inspection. No: Edema Neurological: Present: GCS=15, CN II-XII Intact, Speech Normal, Motor Func Grossly Intact, Normal Sensory Function, Normal Cerebellar Funct Skin: Present: Warm, Dry, Normal Color. No: Rashes Psychiatric: Present: Alert, Oriented x 3, Normal Insight, Normal Concentration Medical Decision Making ED Course and Treatment: 11/20/17 21:13 Impression: 57 year old female complaining of mid-sternal chest pain, shortness of breath, and dizziness today. Differential Diagnosis included but are not limited to: anxiety vs. ACS vs. Pnemonia Plan: -- EKG -- Chest X-ray -- Labs, cardiac enymes -- Morphine -- Reassess and disposition Prior Visits: Notes and results from previous visits were reviewed. Progress Notes: Reviewed EKG, sinus rhythm at 72 bpm. Anteroseptal infarct, ST/T changes. No significant changes from previous on September 2017. 11/20/17 21:[address] 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 EKG sent to him for review. 11/20/17 21:[address] Dye, who reviewed EKG, states pt is not a Code Heart. Pt will be treated symptoms, recommends Aspirin which pt received, and Plavix. 11/20/17 21:[address] Corbin, who is aware and agrees with plan. Accepts pt in to hospitalist service. 11/20/17 22:32 Chest X-ray reviewed, shows no acute processes. 11/20/17 23:32 Pt currently at this time asymptomatic, states she feels much better. No chest pain. Pt no longer anxious. - Lab Interpretations Lab Results: 11/20/17 21:10 11/20/17 21:10 Lab Results 11/20/17 21:10: WBC 3.6 L D, RBC 4.53, Hgb 13.9, Hct 40.1, MCV 88.5, MCH 30.7, MCHC 34.7, RDW 13.3, Plt Count 162, MPV 11.0 11/20/17 21:10: Sodium 140, Potassium 3.3 L, Chloride 101, Carbon Dioxide 24, Anion Gap 18, BUN 21, Creatinine 0.8, Est GFR ( Amer) > 60, Est GFR (Non- Af Amer) > 60, Random Glucose 104, Calcium 9.9, Total Bilirubin 0.3, AST 32, ALT 35, Alkaline Phosphatase 37 L, Lactate Dehydrogenase 536, Total Creatine Kinase 44, Troponin I < 0.01, Total Protein 7.5, Albumin 4.9 H, Globulin 2.6, Albumin/Globulin Ratio 1.9 H 11/20/17 21:10: PT 11.6, INR 1.02, APTT 27.5 I have reviewed the lab results: Yes - RAD Interpretation Radiology Orders: 11/20/17 21:23 CHEST PORTABLE [RAD] Stat Fur Storage Clerk: ED Physician - EKG Interpretation Interpreted by ED Physician: Yes Type: 12 lead EKG - Medication Orders Current Medication Orders: Discontinued Medications Alprazolam (Xanax) 0.25 mg PO ONCE ONE Stop: 11/20/17 22:00 Last Admin: 11/20/17 22:15 Dose: 0.25 mg Clopidogrel Bisulfate (Plavix) 75 mg PO STAT STA Stop: 11/20/17 21:22 Last Admin: 11/20/17 21:34 Dose: 75 mg Morphine Sulfate (Morphine) 2 mg IVP STAT STA Stop: 11/20/17 21:22 Last Admin: 11/20/17 21:31 Dose: 2 mg MAR Pain Assessment Document 11/20/17 21:31 AD (Rec: 11/20/17 21:34 AD [id number]) Pain Reassessment Is this a pain reassessment? No Presence of Pain Presence of Pain Yes Description Intensity of Pain at present 8 Pain Behavior Facial Grimacing IVP Administration Document 11/20/17 21:31 AD (Rec: 11/20/17 21:34 AD [id number]) Charges for Administration # of IVP Administrations 1 Potassium Chloride (K-Dur 20 Meq Er Tab) 20 meq PO STAT STA Stop: 11/20/17 22:16 Last Admin: 11/20/17 22:38 Dose: 20 meq - Scribe Statement The provider has reviewed the documentation as recorded by the Deanne Aragon All medical record entries made by the Brigitteibkavitha were at my direction and personally dictated by me. I have reviewed the chart and agree that the record accurately reflects my personal performance of the history, physical exam, medical decision making, and the department course for this patient. I have also personally directed, reviewed, and agree with the discharge instructions and disposition. Disposition/Present on Arrival - Present on Arrival Any Indicators Present on Arrival: No History of DVT/PE: No History of Uncontrolled Diabetes: No Urinary Catheter: No History Surgical Site Infection Following: None - Disposition Have Diagnosis and Disposition been Completed?: Yes Diagnosis: Chest pain Disposition: HOSPITALIZED Disposition Time: 23:26 Patient Problems: Current Active Problems Problem Status Onset Chest pain Acute Condition: STABLE Discharge Instructions (ExitCare): Chest Pain (ED) Referrals: Donis Corbin MD [Primary Care Provider] - Follow up with primary
[2017-11-20] MEDS ORDERED: Morphine 2 mg/ml ISec IVP STA (21:21)
[2017-11-20 21:42] LABS: ALB/GLOB RATIO 1.9 (1.1-1.8); ALBUMIN 4.9 g/dL (3.0-4.8); ALT/SGPT 35 U/L (7-56); AST/SGOT 32 U/L (14-36); BLOOD UREA NITROGEN 21 mg/dL (7-21); CALCIUM 9.9 mg/dL (8.4-10.5); GFR AFRICAN-AMERICAN > 60; GFR NON-AFRICAN AMERICAN > 60
[2017-11-20 21:48] LABS: HEMOGLOBIN 13.9 g/dL (12.0-16.0); MEAN CELL VOLUME 88.5 fl (80.0-105.0); MEAN CORPUSCULAR HEMOGLOBIN 30.7 pg (25.0-35.0); MEAN CORPUSCULAR HGB CONC 34.7 g/dl (31.0-37.0); RBC 4.53 10^6/uL (3.5-6.1); RED CELL DISTRIBUTION WIDTH 13.3 % (11.5-14.5); WHITE BLOOD COUNT 3.6 10^3/ul (4.5-11.0)
[2017-11-20 21:53] LABS: TROPONIN I < 0.01 ng/mL
[2017-11-20 22:03] LABS: INR 1.02 (0.93-1.08); PARTIAL THROMBOPLASTIN TIME 27.5 Seconds (25.1-36.5); PROTHROMBIN TIME 11.6 SECONDS (9.4-12.5)
[2017-11-20] MEDS ORDERED: Potassium Chloride 20 mEq ER Tab PO STA (22:15)
[2017-11-21 03:52] VITALS: BMI 21.0
[2017-11-21 06:38] VITALS: O2SAT 98
[2017-11-21 07:16] LABS: TROPONIN I < 0.01 ng/mL
[2017-11-21 08:08] LABS: BLOOD UREA NITROGEN 24 mg/dL (7-21); CALCIUM 9.2 mg/dL (8.4-10.5); GFR AFRICAN-AMERICAN > 60; GFR NON-AFRICAN AMERICAN > 60; HDL CHOLESTEROL 35 mg/dL (29-60)
[2017-11-21 08:12] LABS: LDL CHOLESTEROL 53 mg/dL (0-129)
--- NOTE | 2017-11-21 08:38 | RAD ---
Date of service: 11/20/2017 HISTORY: chest pain COMPARISON: No prior. FINDINGS: LUNGS: No active pulmonary disease. PLEURA: No significant pleural effusion identified, no pneumothorax apparent. CARDIOVASCULAR: Normal. OSSEOUS STRUCTURES: No significant abnormalities. VISUALIZED UPPER ABDOMEN: Normal. OTHER FINDINGS: Single lead pacemaker IMPRESSION: No active disease.
--- NOTE | 2017-11-21 11:02 | CARD ---
APPROVED REPORT Date of service: 11/20/2017 EKG Measurement Heart [id number] <Conclusion> Normal sinus rhythm Anteroseptal infarct, age undetermined ST & T wave abnormality, Correlate Clinically. Abnormal ECG
[2017-11-21 12:05] LABS: TROPONIN I < 0.01 ng/mL
[2017-11-21 12:38] VITALS: BP 92/59; PULSE 60; RESP 21; TEMP 98
--- NOTE | 2017-11-21 14:14 | CON ---
DATE: 11/21/2017 REASON FOR CONSULTATION: Cardiac evaluation, chest pain, shortness of breath, palpitation, feeling very weak. Evaluation for code STEMI. BRIEF CLINICAL HISTORY: This is a 57-year-old female with past medical history significant for coronary artery disease, cardiomyopathy ischemic, status post AICD, diabetes, came in yesterday to Dr. Corbin's office not feeling good. Dr. Corbin sent her to the ER. ER physician saw the EKG and wanted to activate, code STEMI was called. The patient has no chest pain. The patient's bundle-branch block is old, so code STEMI was canceled. This morning, I saw the patient. The patient complained of palpitation. No chest pain, pain in the epigastrium. So far troponin remains negative. Though, the patient complained of shortness of breath and dyspnea on exertion, which is nothing new. PAST MEDICAL HISTORY: Significant for coronary artery disease, status post cardiogenic shock, hypertension, diabetes, hyperlipidemia, non-STEMI on 03/15/2014 in [place]. The patient underwent PTCA in [place], status post cardiogenic shock, status post AICD on 02/22/2011, Biotronik defibrillator. PREVIOUS CARDIAC WORKUP: As follows: The patient underwent cardiac catheterization dated 05/08/2015 at [facility] because of abnormal stress test that shows patent stent in LAD and mid circumflex. Normal right coronary artery is small caliber. Ejection fraction of 25%. EDP was in the range of 10-12, status post AICD, status post interrogation of AICD on 01/08/2017, that shows battery life is 7-8 years, normal functioning, no issues. Normal impedance. Defibrillator is Biotronik. CURRENT MEDICATIONS: The patient is taking at home Entresto , metformin, ibuprofen, folic acid, clopidogrel, aspirin, Plavix. REVIEW OF SYSTEMS: As per HPI. PHYSICAL EXAMINATION: VITAL SIGNS: Height of the patient is 5 feet, weight of the patient 120 pounds, body mass index 20 kg/m2. Rest of the vitals, temperature afebrile, heart rate 72, blood pressure 99/66. HEENT: PERRLA. Extraocular muscles intact. NECK: Supple. No carotid bruits or thyromegaly. CHEST: Clear to auscultation. HEART: S1 and S2 regular. ABDOMEN: Soft. EXTREMITIES: Clubbing and cyanosis negative. LABORATORY DATA: WBC 3.6, hemoglobin 13.9, hematocrit 40.1, platelet count 162. Chemistry shows sodium 141, potassium 4.2, chloride 105, carbon dioxide 25, anion gap of 15, BUN 24, creatinine 0.5, troponin is negative. IMPRESSION: Atypical chest pain, so far no evidence of acute myocardial infarction, history of coronary artery disease, history of stent in [place], history of cardiogenic shock, history of automatic implantable cardioverter-defibrillator, Biotronik pacemaker normal functioning, battery life 7-8 years. RECOMMENDATIONS: Resume medications. We will get echo to assess LV function, lipid profile, TSH, hemoglobin A1c. We will follow with you. Thank you, Dr. Corbin, for providing us the opportunity in taking care of the patient, Shila Salcido. Aleta Dye MD
--- NOTE | 2017-11-21 17:36 | CARD ---
APPROVED REPORT Date of service: 11/21/2017 EXAM: Two-dimensional and M-mode echocardiogram with Doppler and color Doppler. INDICATION LV Function:SystolicDiastolic Chest Pain 2D DIMENSIONS Left Atrium (2D)4.1 (1.6-4.0cm)IVSd0.7 (0.7-1.1cm) LVDd5.9 (3.9-5.9cm)PWd0.9 (0.7-1.1cm) LVDs5.2 (2.5-4.0cm)FS (%) 10.6 % LVEF (%)22.9 (>50%) M-Mode DIMENSIONS Aortic Root3.00 (2.2-3.7cm)Aortic Cusp Exc.1.70 (1.5-2.0cm) Aortic Valve AoV Peak Zordokwg565.0cm/Gaudencio Peak GR.8mmHg Mitral Valve MV E Dytpyvvj64.2cm/sMV A Pxhqadeu27.6cm/sE/A ratio1.0 TDI Lateral E' Peak V7.41cm/sMedial E' Peak V4.97cm/sE/Lateral E'8.7 E/Medial E'12.9 Pulmonary Valve PV Peak Erxmqzaa41.0cm/sPV Peak Grad.2mmHg Tricuspid Valve TR Peak Gerikwoa625qb/sRAP ABHXIGDF30inMjNW Peak Gr.32mmHg [id number] LEFT VENTRICLE The left ventricle is normal size. There is normal left ventricular wall thickness. The systolic function is severely impaired.RVSP-20-25% There is severe global hypokinesis of the left ventricle. Transmitral Doppler flow pattern is Grade II-pseudonormal filling dynamics. No left ventricle thrombus noted on this study. There is no ventricular septal defect visualized. There is no left ventricular aneurysm. There is no mass noted in the left ventricle. RIGHT VENTRICLE The right ventricle is normal size. There is normal right ventricular wall thickness. Systolic function of RV is mildly reduced. ATRIA The left atrium is mildly dilated. The right atrium size is normal. There is a catheter/pacemaker lead seen in the right atrium. The interatrial septum is intact with no evidence for an atrial septal defect. AORTIC VALVE The aortic valve is thickened but opens well. There is trace aortic regurgitation. There is no aortic valvular stenosis. There is no aortic valvular vegetation. MITRAL VALVE The mitral valve is thickened but opens well. The mitral valve appears somewhat rheumatic. Mitral regurgitation is mild to moderate. There is no mitral valve stenosis. There is no evidence of mitral valve prolapse. TRICUSPID VALVE The tricuspid valve leaflets are thickened , but open well. There is moderate to severe tricuspid regurgitation.Multiple jets. Calculated RVSP-42 mm of Hg may be underestimating b/c of configuration of Tr Jets. There is no tricuspid valve stenosis. There is no tricuspid valve prolapse or vegetation. PULMONIC VALVE The pulmonic valve is borderline thickened. There is trace pulmonic valvular regurgitation. There is no pulmonic valvular stenosis. GREAT VESSELS The aortic root is normal in size. The ascending aorta is normal in size. The pulmonary artery is normal. The IVC is normal in size and collapses >50% with inspiration. PERICARDIAL EFFUSION There is no pleural effusion. There is no pericardial effusion. <Conclusion> The left ventricle is normal size. There is normal left ventricular wall thickness. The systolic function is severely impaired.RVSP-20-25% Systolic function of RV is mildly reduced. There is trace aortic regurgitation. Mitral regurgitation is mild to moderate. There is moderate to severe tricuspid regurgitation.Multiple jets. Calculated RVSP-42 mm of Hg may be underestimating b/c of configuration of Tr Jets. The IVC is normal in size and collapses >50% with inspiration. There is no pericardial effusion. No Vegetation or thrombus noted.
--- NOTE | 2017-11-22 16:46 | HP ---
DATE OF EXAM: 11/21/2017 CHIEF COMPLAINT: Shila Salcido is a 57-year-old female complaining of acute onset of dyspnea and chest discomfort. HISTORY OF PRESENT ILLNESS: This is a 57-year-old female with history of ischemic cardiomyopathy, ejection fraction 25%, on Entresto, has been complaining of shortness of breath, which got worse over the last 2 hours. The patient was advised to go to the Emergency Room by ambulance for further evaluation. The patient felt more dyspneic than any chest pain and she has been using all her medications on regular basis. There is no fever. No history of leg swelling. No history of any clots in the past. The patient takes all her medications. No dizziness. No chest pain, no radiation either. PAST MEDICAL HISTORY: Coronary artery disease, ischemic cardiomyopathy, ejection fraction 25%. The patient has low blood pressure, runs always and hypercholesterolemia, history of MN in the past, coronary artery disease, stent placement. ALLERGIES: PENICILLIN. SOCIAL HISTORY: She lives by herself. She has children. Never smoked. Drinks no alcohol. FAMILY HISTORY: Noncontributory. HOME MEDICATIONS: She does take a lot of medications, include Lipitor 80 mg once a day, Plavix 75, aspirin 81, Valium, vitamin B complex, Aldactone 25 p.o. daily, Entresto one tablet b.i.d., Protonix 40 mg once a day, omeprazole plus sodium bicarbonate, multivitamins, Remeron, Glucophage, Antivert, Creon, lactulose, Nizoral shampoo and cream, Motrin p.r.n., Lasix once a day, folic acid once a day, Triglide 160 mg once a day, Pepcid 40 once a day, vitamin D once a week, and Colace 100 b.i.d. REVIEW OF SYSTEMS: As in the present illness, she always complains of getting tired, fatigued easily, dyspnea with exertion. No other GI symptoms. No urological symptoms. No neurological symptoms. No ear, nose, or throat symptoms. The rest of the review of systems is negative. PHYSICAL EXAMINATION: VITAL SIGNS: Temperature 98, heart rate 80, blood pressure 102/60, respirations 18. HEAD AND NECK: Normal. No JVD. No thyromegaly. CHEST: Clear bilateral. CARDIAC: First sound and second sound normal. Systolic murmur. ABDOMEN: Soft, nontender. EXTREMITIES: No edema. NEUROLOGIC: Normal. LABORATORY DATA: White count 3.6, hemoglobin 13.9, hematocrit 40.1, [id number]. PT, PTT is normal. Chemistry shows sodium 141, potassium 4.2 chloride 105, bicarbonate 25, BUN 24, creatinine 0.5. Liver function test is normal. Troponin x3 was negative. The patient has cholesterol 104 with LDL 53, HDL 35. TSH 2.3, which is normal. EKG, electrocardiogram shows some anteroseptal ST changes with lateral ST changes, nonspecific, old anteroseptal MN or age undetermined. Chest x-ray, no active pulmonary disease. The patient has echocardiogram, which shows ejection fraction 20% to 25%. IMPRESSION AND PLAN: This is a 57-year-old female with ischemic cardiomyopathy, came in with severe dyspnea, admitted, no congestive heart failure. The patient has panic attack, anxiety, was given Valium. She feels better. Echocardiogram shows 25% ejection fraction. The patient has been given for cardiac transplant at [facility] with cardiothoracic surgeon to follow up for cardiac transplant. The patient was advised to continue all her medications and she is stable. Cleared by Cardiology, Dr. Dye, and will discharge her home. Continue the rest of medication in addition to Klonopin 0.5 mg b.i.d. p.r.n. for anxiety. Donis Corbin MD
== END 2017-11-21 16:36 | disposition home or self-care (01) ==
LOC: ED 21:00 → ERH 23:24 → 2RSO 11-21 00:11
PROVIDERS: ADMIT Internal Medicine; ATTEND Internal Medicine
DX: R07.89 Other chest pain (principal); I10 Essential (primary) hypertension; E11.9 Type 2 diabetes mellitus without complications; I45.4 Nonspecific intraventricular block; I25.5 Ischemic cardiomyopathy; E78.5 Hyperlipidemia, unspecified; F41.0 Panic disorder [episodic paroxysmal anxiety]; E78.00 Pure hypercholesterolemia, unspecified; I25.10 Atherosclerotic heart disease of native coronary artery without angina pectoris; I25.2 Old myocardial infarction; K21.9 Gastro-esophageal reflux disease without esophagitis; Z79.02 Long term (current) use of antithrombotics/antiplatelets; Z95.5 Presence of coronary angioplasty implant and graft; Z95.810 Presence of automatic (implantable) cardiac defibrillator; Z79.84 Long term (current) use of oral hypoglycemic drugs; Z79.82 Long term (current) use of aspirin
CPT/HCPCS: 36415; 71045; 80048; 80053; 80061; 82550; 83615; 83735; 84100; 84443; 84484; 85027; 85610; 85730; 93005; 93306; 96374; 99285; G0378; J2270

== ENCOUNTER 2018-05-29 11:00 | Outpatient (CLI) | payer MEDICAID | END 2018-05-29 11:01 | disposition home or self-care (01) | LOC: CARDIO 11:00 ==

== ENCOUNTER 2018-06-08 15:23 | Emergency (ER) | payer MEDICAID ==
[2018-06-08 15:23] VITALS: PULSE 61
[2018-06-08 16:02] VITALS: RESP 18; TEMP 98.8; BMI 18.8
[2018-06-08 16:40] LABS: ALB/GLOB RATIO 1.9 (1.1-1.8); ALBUMIN 4.7 g/dL (3.0-4.8); ALT/SGPT 24 U/L (7-56); AST/SGOT 34 U/L (14-36); BLOOD UREA NITROGEN 26 mg/dL (7-21); CALCIUM 9.5 mg/dL (8.4-10.5); GFR NON-AFRICAN AMERICAN > 60
[2018-06-08 16:41] LABS: BASO # 0.01 K/mm3 (0.0-2.0); BASO % 0.3 % (0.0-3.0); HEMOGLOBIN 12.8 g/dL (12.0-16.0); LYMPH # 1.9 (1.2-3.4); LYMPH % 47.6 % (22.0-35.0); MEAN CELL VOLUME 91.1 fl (80.0-105.0); MEAN CORPUSCULAR HGB CONC 32.9 g/dl (31.0-37.0); MEAN PLATELET VOLUME 10.9 fl (7.0-11.0); MONO # 0.2 (0.1-0.6); MONO % 5.3 % (1.0-6.0); RBC 4.27 10^6/uL (3.5-6.1); RED CELL DISTRIBUTION WIDTH 14.2 % (11.5-14.5); WHITE BLOOD COUNT 3.9 10^3/uL (4.5-11.0)
[2018-06-08 16:51] LABS: TROPONIN I < 0.01 ng/mL
--- NOTE | 2018-06-08 17:05 | ED PDOC ---
Arrival/HPI - General Chief Complaint: Chest Pain Time Seen by Provider: 06/08/18 15:36 - History of Present Illness Narrative History of Present Illness (Text): 57 yr old female w/ hx of chf, HLD, DM2, AICD, CAD on plavix p/w chest pain after fall. Pt notes that she was walking 2d prior when she accidentally tripped and fell onto her R chest. She denies any impact to any other part of her body or pain in any other part of her body. She denies any LOC. No headache, abdominal pain, extremity pain, hip pain or joint pain. No other complaints. No sob. No dark or bloody stool. No rashes. She notes she did not take any medications for the pain. Past Medical History - Past History Past History: Non-Contributing - Infectious Disease Hx of Infectious Diseases: None - Tetanus Immunization Tetanus Immunization: Unknown - Cardiac Hx Cardiac Disorders: Yes Hx Angina: Yes Hx Cardiac Arrhythmia: Yes Hx Pacemaker: Yes Other/Comment: ischemic cardio myopathy - Pulmonary Hx Respiratory Disorders: Yes Hx Pneumonia: Yes Other/Comment: exertional SOB, sleeps on 3 pillows - Neurological Hx Neurological Disorder: No - HEENT Hx HEENT Disorder: No - Renal Hx Renal Disorder: No - Endocrine/Metabolic Hx Endocrine Disorders: Yes Hx Diabetes Mellitus Type 2: Yes - Hematological/Oncological Hx Blood Disorders: No - Integumentary Hx Dermatological Disorder: No - Musculoskeletal/Rheumatological Hx Musculoskeletal Disorders: Yes Hx Falls: Yes - Gastrointestinal Hx Gastrointestinal Disorders: Yes Hx Gastroesophageal Reflux: Yes - Genitourinary/Gynecological Hx Genitourinary Disorders: No - Psychiatric Hx Anxiety: Yes Hx Substance Use: No - Surgical History Hx Cardiac Catheterization: Yes (stents) - Anesthesia Hx Anesthesia: Yes Hx Anesthesia Reactions: No Hx Malignant Hyperthermia: No - Suicidal Assessment Feels Threatened In Home Enviroment: No Family/Social History Family/Social History: Unknown Family HX Smoking Status: Never Smoked Hx Alcohol Use: No Hx Substance Use: No Hx Substance Use Treatment: No Allergies/Home Meds Allergies/Adverse Reactions: Allergies Penicillins Allergy (Verified 11/20/17 21:07) RASH Home Medications: Home Meds Medication Instructions Recorded Confirmed Clopidogrel [Plavix] 75 mg PO DAILY 06/09/14 11/20/17 Spironolactone [Aldactone] 25 mg PO DAILY 06/09/14 11/20/17 Aspirin [Aspirin Chewable] 81 mg PO DAILY 01/07/17 11/20/17 Docusate [Colace] 100 mg PO BID 01/07/17 11/20/17 Ergocalciferol (Vitamin D2) 50,000 units PO Q7D 01/07/17 11/20/17 [Vitamin D2] Fenofibrate [Triglide] 160 mg PO DAILY 01/07/17 11/20/17 Folic Acid 1,000 mg PO DAILY 01/07/17 11/20/17 MetFORMIN [glucoPHAGE] 500 mg PO BID 01/07/17 11/20/17 Mirtazapine [Remeron] 15 mg PO DAILY 01/07/17 11/20/17 Mv,Min10/Folic Acid/D3/Ala/Lut 1 tab PO DAILY 01/07/17 11/20/17 [Strovite One Caplet] Omeprazole/Sodium Bicarbonate 1 tab PO DAILY 01/07/17 11/20/17 [Omeprazole-Bicarb 40-1,100 Cap] Sacubitril/Valsartan [Entresto 24 1 tab PO BID 01/07/17 11/20/17 mg-26 mg] Furosemide [Lasix] 1 tab PO DAILY 06/30/17 11/20/17 Meclizine [Antivert] 25 mg PO TID PRN 06/30/17 11/20/17 Ketoconazole 2% Shampoo [Nizoral] 0 applic TOP ONCE 09/24/17 11/20/17 Lactulose [Constulose] 0 gm PO DAILY 09/24/17 11/20/17 Lipase/Protease/Amylase [Creon 1 ecc PO DAILY 09/24/17 11/20/17 [id number] U] Pantoprazole [Protonix] 40 mg PO DAILY 09/24/17 11/20/17 Vitamin B Complex [Vitamin B50 1 cap PO DAILY 09/24/17 11/20/17 Super Complex] Atorvastatin [Lipitor] 80 mg PO DAILY 11/20/17 11/20/17 Review of Systems - Review of Systems Constitutional: absent: Fatigue, Weight Change Eyes: absent: Vision Changes, Photophobia ENT: absent: Hearing Changes, Epistaxis Respiratory: absent: SOB, Cough Cardiovascular: Chest Pain. absent: Palpitations, Edema, Calf Pain, MORALES, Orthopnea, Syncope, Other Gastrointestinal: absent: Abdominal Pain, Stool Changes, Constipation, Nausea, Vomiting Genitourinary Female: absent: Dysuria, Frequency Musculoskeletal: absent: Arthralgias, Back Pain, Neck Pain Skin: absent: Rash, Pruritis, Skin Lesions Neurological: absent: Headache, Dizziness, Focal Weakness Endocrine: absent: Diaphoresis, Polyuria Hemo/Lymphatic: absent: Adenopathy Physical Exam Vital Signs Temp Pulse Pulse Resp BP BP Pulse Ox 06/08/18 16:14 72 96/55 L 06/08/18 15:49 98.8 F 78 18 96/55 L 97 Temperature: Afebrile Pulse: Regular Respiratory Rate: Normal Appearance: Positive for: Well-Appearing Pain Distress: None Mental Status: Positive for: Alert and Oriented X 3 - Systems Exam Head: Present: Atraumatic, Normocephalic Pupils: Present: PERRL Extroacular Muscles: Present: EOMI Conjunctiva: Present: Normal Ears: Present: Normal, NORMAL TM Mouth: Present: Moist Mucous Membranes Pharnyx: Present: Normal Nose (External): Present: Atraumatic. No: Abrasion Nose (Internal): Present: Normal Inspection, No Active Bleeding. No: Purulent Mucous, Septal Deviation, Septal Hematoma Neck: Present: Normal Range of Motion. No: Meningeal Signs, MIDLINE TENDERNESS Respiratory/Chest: Present: Clear to Auscultation, Good Air Exchange, Tender to Palpation (L chest). No: Respiratory Distress, Accessory Muscle Use, Wheezes, Decreased Breath Sounds, Retracting, Rhonchi, Tachypneic Cardiovascular: Present: Regular Rate and Rhythm, Normal S1, S2, Peripheal Pulses Present. No: Tachycardic Abdomen: No: Tenderness, Distention Back: Present: Normal Inspection. No: CVA Tenderness Upper Extremity: Present: Normal Inspection Lower Extremity: Present: Normal Inspection Neurological: Present: GCS=15, CN II-XII Intact, Speech Normal Skin: Present: Warm, Dry. No: Rashes Psychiatric: Present: Alert, Oriented x 3, Normal [facility] Medical Decision Making ED Course and Treatment: 57 yr old female p/w chest pain after fall onto chest. Mechanical fall onto chest. No LOC. No headache. No cspine pain. Neck clear via nexus. Likely contusion type pain. Pending labs and imaging. 06/08/18 17:20 EKG 76, nsr, st elevation noted in V1-V3, seen previously from 03/2018. No STEMI troponin negative. CT added for +dimer. 06/08/18 17:35 labs largely unremarkable pending CT 06/08/18 18:18 CT unremarkable no fx, no pe appreciate consult w/ Dr. Dye (cards) shared EKG largely unchanged from previous and results of labs and studies: Clear for d/c home with f/u and return indications- Likely MSK pain. Pt notes pain improved. No SOB or MORALES, clear for d/c home with f/u and return indications. - Lab Interpretations Lab Results: D-Dimer, Quantitative 536 ng/mlDDU (0-243) H 06/08/18 16:00 Troponin I < 0.01 ng/mL 06/08/18 16:00 Total Bilirubin 0.4 mg/dL (0.2-1.3) 06/08/18 16:00 AST 34 U/L (14-36) 06/08/18 16:00 ALT 24 U/L (7-56) 06/08/18 16:00 Alkaline Phosphatase 37 U/L (38-126) L 06/08/18 16:00 Total Protein 7.0 g/dL (5.8-8.3) 06/08/18 16:00 Albumin 4.7 g/dL (3.0-4.8) 06/08/18 16:00 Globulin 2.4 gm/dL 06/08/18 16:00 Albumin/Globulin Ratio 1.9 (1.1-1.8) H 06/08/18 16:00 - RAD Interpretation Radiology Orders: 06/08/18 16:47 ANGIO CHEST PE PROTOCOL [CT] Stat Disposition/Present on Arrival - Present on Arrival Any Indicators Present on Arrival: No History of DVT/PE: No History of Uncontrolled Diabetes: No Urinary Catheter: No History of Decub. Ulcer: No History Surgical Site Infection Following: None - Disposition Have Diagnosis and Disposition been Completed?: Yes Diagnosis: Chest wall contusion Disposition: HOME/ ROUTINE Disposition Time: 18:20 Patient Problems: Current Active Problems Problem Status Onset Chest wall contusion Acute Condition: GOOD Discharge Instructions (ExitCare): Chest Pain That Is Not Caused by the Heart (DC), Contusion (DC) Additional Instructions: REGIS MAY, thank you for letting us take care of you today. Your provider was Vazquez Cerna and you were treated for CHEST PAIN, FALL. The emergency medical care you received today was directed at your acute symptoms. If you were prescribed any medication, please fill it and take as directed. It may take several days for your symptoms to resolve. Return to the Emergency Department if your symptoms worsen, do not improve, or if you have any other problems. Please contact your doctor or call one of the physicians/clinics you have been referred to that are listed on the Patient Visit Information form that is included in your discharge packet. Bring any paperwork you were given at discharge with you along with any medications you are taking to your follow up visit. Our treatment cannot replace ongoing medical care by a primary care pro vider outside of the emergency department. Thank you for allowing the [facility] team to be part of your care today. If you had an X-Ray or CT scan: A Radiologist will review the ED reading if any change in treatment is needed we will contact you. If you had a blood, urine, or wound culture: It will take several days for the results, if any change in treatment is needed we will contact you. If you had an STI test: It will take 48 hours for the results. Please call after 1 week if you have not heard back. Referrals: Aleta Dye MD [Staff Provider] - Follow up with primary Jason Gerardo MD [Family Provider] - Follow up with primary Forms: [employer] ([employer])
[2018-06-08 17:07] VITALS: BP 89/48; PULSE 69; O2SAT 98
[2018-06-08] MEDS ORDERED: Sodium Chloride 0.9% 1,000 ML IV SCH ×2 (17:15→17:29)
--- NOTE | 2018-06-08 17:38 | CT ---
Date of service: 06/08/2018 CTA chest PE protocol Indication: R sided cp s/p fall, +dimer Technique: Contiguous axial images were obtained through the chest with intravenous contrast enhancement. Sagittal and coronal reconstructions were generated and reviewed. This CT exam was performed using 1 or more of the following dose reduction techniques: Automated exposure control, adjustment of the MAA and/or kV according to patient size, and/or use of iterative reconstruction technique. IV contrast: 146 Omnipaque 350 IV Radiation dose (DLP): 242.83 MGy-cm. Comparison: Chest x-ray performed 11/20/17 Findings: Visualized portions of the inferior thyroid gland appear unremarkable. The mediastinal and hilar vascular structures appear within normal limits. Single lead left-sided AICD. Cardiomegaly. No large central or segmental pulmonary embolus evident. No focal consolidation. No pleural effusion. No pneumothorax. Limited visualization of the upper abdomen reveals evidence of a contracted gallbladder. Otherwise grossly unremarkable. Degenerative changes. Osseous demineralization.. Impression: Single lead left-sided AICD. Cardiomegaly. No large central or segmental pulmonary embolus identified. No focal consolidation.
--- NOTE | 2018-06-08 23:52 | CARD ---
APPROVED REPORT Date of service: 06/08/2018 EKG Measurement Heart [id number] <Conclusion> Normal sinus rhythm Septal infarct, age undetermined NDSTT abnormalities Abnormal ECG
== END 2018-06-08 18:37 | disposition home or self-care (01) ==
LOC: ED 15:23
DX: S20.219A Contusion of unspecified front wall of thorax, initial encounter (principal); W01.0XXA Fall on same level from slipping, tripping and stumbling without subsequent striking against object, initial encounter; Y93.01 Activity, walking, marching and hiking; E11.9 Type 2 diabetes mellitus without complications; E78.5 Hyperlipidemia, unspecified; I25.10 Atherosclerotic heart disease of native coronary artery without angina pectoris; Z79.02 Long term (current) use of antithrombotics/antiplatelets; Z95.810 Presence of automatic (implantable) cardiac defibrillator; I50.9 Heart failure, unspecified
CPT/HCPCS: 71275; 80053; 83735; 84484; 85025; 85378; 93005; 99283; Q9967

== ENCOUNTER 2018-06-23 07:24 | Outpatient (CLI) | payer MEDICAID | END 2018-06-23 07:25 | disposition home or self-care (01) | LOC: RAD 07:24 ==